=== PATIENT | female | born 1985 | race Caucasian/White ===

== ENCOUNTER → 2017-10-10 16:01 | Outpatient (REF) | payer BC, SELFPAY ==
--- NOTE | 2017-10-10 15:40 | PAPFT_PTH ---
PATIENT: Chantel Best LOC: [facility] U#:[id number] AGE/SX: 39/F ROOM: RE10/10/[address]: Chanel Lane : 1985 BED: DIS: SPEC #: [id number] RECD: 10/10/17 17:54 STATUS: JUN REQ #: [id number] CARA: 10/10/17 15:[address]: Chanel Lane DEPT: [facility] [place] Cytology RECD BY: Meredith Finn ENTERED: 10/10/17 17:55 SP TYPE: PAPFT OTHR DR: Prachi Lewis Tissues: 1 - CX/ENDOCX FOR PAP SMEARS Procedures: PAP THIN PREP/UVM Screening HPV DNA PROBE Comments: [id number]
== END ==
LOC: LBN 16:01
PROVIDERS: PCP Nurse Practitioner; Visit Provider Obstetrics & Gynecology Gynecology
DX: Z12.4 Encounter for screening for malignant neoplasm of cervix (principal); Z11.51 Encounter for screening for human papillomavirus (HPV)
CPT/HCPCS: 88142; 87624

== ENCOUNTER 2017-10-24 15:33 | Outpatient (REF) | payer BC, SELFPAY ==
[2017-10-28 14:57] LABS: Chlamydia Result Negative; GC Result Negative; Specimen Description CERVIX
== END 2017-10-24 15:53 ==
LOC: LBN 15:33
PROVIDERS: PCP Nurse Practitioner; Visit Provider Nurse Practitioner Women's Health
DX: Z11.3 Encounter for screening for infections with a predominantly sexual mode of transmission (principal)
CPT/HCPCS: 87491; 87591

== ENCOUNTER 2018-09-22 14:20 | Outpatient (CLI) | payer BC, SELFPAY ==
[2018-09-22 15:26] LABS: HCG Quant, Pregnancy 767 mIU/mL (1-3)
== END 2018-09-22 14:40 ==
PROVIDERS: PCP Nurse Practitioner; Visit Provider Nurse Practitioner Family
DX: N92.6 Irregular menstruation, unspecified (principal)
CPT/HCPCS: 36415; 84702

== ENCOUNTER 2018-09-25 14:55 | Outpatient (CLI) | payer BC, SELFPAY ==
[2018-09-25 15:47] LABS: HCG Quant, Pregnancy 1620 mIU/mL (1-3)
== END 2018-09-25 15:15 ==
PROVIDERS: PCP Nurse Practitioner; Visit Provider Obstetrics & Gynecology
DX: O20.9 Hemorrhage in early pregnancy, unspecified (principal); Z32.01 Encounter for pregnancy test, result positive
CPT/HCPCS: 36415; 86850; 86900; 86901; 90384; 84702

== ENCOUNTER 2018-09-26 14:06 | Emergency (ER) | payer BC, SELFPAY ==
[2018-09-26 14:10] VITALS: BP 115/90; PULSE 76; RESP 16; TEMP 36.7; O2SAT 99
--- NOTE | 2018-09-26 14:24 | ED.GENADUL_ITS ---
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 You will follow-up with OB on day 4 and day 7 for repeat blood work. Follow-up with OB on Saturday morning for reevaluation. Return immediately to the emergency department if you develop any worsening or concerning symptoms of dizziness, fever, worsening pain or vaginal bleeding. Discharge Data Discharge Date/Time-TO BE ENTERED AT DEPARTURE: 09/26/18 17:43 Discharge Physician: Geneva Renae Medical Decision Making 33-year-old female with estimated gestational age of 3 weeks presents with brown vaginal spotting and right-sided abdominal pain for the past 2 days. She is hemodynamically stable. She appears nontoxic. Her abdomen is soft and minimally tender in the right mid and right lower quadrant. She has no rebound tenderness. Patient had RhoGam injection yesterday. She is quite early in , but will obtain an ultrasound to rule out possible ectopic. We will also check screening labs. Labs reviewed and unremarkable. hCG is downtrending, was 1620, now 1338. Ultrasound notes fluid in endometrial cavity but no true sac as well as fluid collection in right Fallopian tube, differential diagnosis includes early IUP versus miscarriage versus possible ectopic. Appendix was visualized and normal. Case discussed with OB Dr. Suarez who evaluated patient at bedside and patient opts for methotrexate injection at this time. Plan is for patient to follow-up on day 4 and day 7 for labs. She will follow-up with OB on Saturday in the office. Patient remains hemodynamically stable. Patient advised to return to the ER with any worsening or new concerning symptoms. Medical Records Medical records reviewed: Yes I reviewed the patient's medical records. Imaging Data Radiologic Study: Radiologist's impression: ABDOMINAL ULTRASOUND, LIMITED: Limited ultrasound was performed to evaluate appendix in a patient with abdominal pain. Appendix is presumptively visualized in the right lower quadrant as a blind-ending collapsed viscus. Overall thickness is about 5 mm. No edema or fluid collection within or surrounding the presumptive appendix. CONCLUSION: No evidence of appendicitis. Normal appendix presumptively identified. OB ULTRASOUND: Many abnormalities cannot be diagnosed. A normal exam does not exclude a congenital anomaly. HISTORY: Date of exam: 09/26/18 LMP: 09/05-09/09 EDC by LMP: Previous study: wks Range: to EDC by prior us: Findings: Prior surgery/: BIOMETRY: PELVIC MEASUREMENTS: CRL: mm wks Uterus: 7.4 x 4.3 x 6.4 cm Yolk sac: mm wks Gest sac: mm wks Rt Ovary: 3.3 x 1.2 x 0.9 cm BPD: mm wks HC: mm wks Lt Ovary: 2.3 x 1.5 x 1.4 cm AC: mm wks FL: mm wks Comments: Quantitative hCG = 1338 Composite Age (US): wks EDC by US: Heart Rate: BPM Amniotic Fluid: Oligo Normal Polyhydramnios Movement noted: Yes X No Comments: OB ultrasound was performed utilizing first trimester protocol with transabdominal and transvaginal scanning. A tiny quantity of poorly defined fluid in the endometrial cavity noted. No well-defined decidua. No cardiac activity observed. No pole observed. Small fluid collection noted in right adnexa, probably in fallopian tube measuring about 5 mm in greatest diameter. Ovaries are unremarkable in appearance. CONCLUSION: No convincing evidence of intrauterine gestation. Possible right tubal ectopic . Correlation with serial beta-hCG levels and repeat ultrasound recommended. The findings were discussed with Dr. Renae of the Emergency Department on the date of the examination. Lab Data Lab results reviewed: Yes I reviewed the patient's lab results. Laboratory Tests Range/Units 09/26/18 09/26/18 09/26/18 14:41 14:41 14:41 WBC (4.4-10.8) k/cumm 8.58 RBC (4.00-5.20) m/cumm 4.27 Hgb (12.0-15.5) g/dL 13.4 Hct (36.0-46.0) % 38.8 MCV (80-95) fL 90.9 MCH (27.0-33.0) pg 31.4 MCHC (32.0-36.0) g/dL 34.5 RDW (11.7-14.6) % 12.2 Plt Count (130-400) x1000/uL 241 MPV (8.0-11.0) fL 11.4 H Immature Gran % 1.0 Neutrophils % 59.3 Lymphocytes % 24.2 Monocytes % 6.6 Eosinophils % 8.3 Basophils % 0.6 Absolute Neutrophils (1.2-6.7) k/cumm 5.08 Absolute Lymphocytes (1.2-3.4) k/cumm 2.08 Absolute Monocytes (0.11-0.7) k/cumm 0.57 Absolute Eosinophils (0.0-0.7) k/cumm 0.71 H Absolute Basophils (0.0-0.2) k/cumm 0.05 Sodium (136-145) mmol/L 138 Potassium (3.5-5.1) mmol/L 4.0 Chloride (98-107) mmol/L 102 Carbon Dioxide (21.0-32.0) mmol/L 24.0 Anion Gap (3-11) mmol/L 12.0 H BUN (7-18) mg/dL 9 Creatinine (0.55-1.02) mg/dL 0.75 Estimated GFR/1.73 m2 (mL/min/1.73m2) >= 60.00 Glucose (70-100) mg/dL 99 Calcium (8.5-10.1) mg/dL 8.8 Total Bilirubin (0.2-1.0) mg/dL 0.2 AST (15-37) U/L 20 ALT (12-78) U/L 25 Alkaline Phosphatase (46-116) U/L 79 Total Protein (6.4-8.2) g/dL 7.5 Albumin (3.4-5.0) g/dL 3.9 Beta HCG, Quant (1-3) mIU/mL 1338 H Patient ABO/Rh Cancelled HPI General Mode of arrival: ambulatory . Date/Time Provider Initiated Documentation: 09/26/18 14:07 . Limitations to Documentation: no limitations . Information obtained by: patient . HPI Narrative: Patient is a 33-year-old female with LMP of 09/05/2018 with estimated gestational age of 3 weeks who presents with right sided abdominal pain and brown vaginal spotting for the past 2 days. Patient was seen at OB office yesterday and has an uptrending hCG and was referred for repeat EGD and ultrasound on Saturday. Patient states she is returning due to concern for symptoms. She denies any fever, nausea, vomiting. 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 SOREN: 3 Review of Systems Review of Systems All systems reviewed & are unremarkable except as noted in HPI and below Constitutional Reports as per HPI, Denies chills and Denies fever(s) Eyes Denies blurry vision ENT Denies dizziness, Denies sore throat and Denies throat swelling Cardiovascular Denies chest pain and Denies dyspnea Respiratory Denies cough and Denies dyspnea Gastrointestinal Reports abdominal pain, Denies diarrhea and Denies vomiting Genitourinary Denies hematuria and Denies dysuria Musculoskeletal Denies back pain and Denies numbness Integumentary/Breasts Denies lesions and Denies rash Neurologic Denies dizziness, Denies focal weakness and Denies numbness Allergic/Immunologic Denies throat swelling [facility] Medical History Fibrocystic disease of breast (Inactive 10/01/11) Left leg pain (Inactive 05/21/17) [place] teeth extracted (Acute) Family History Mother Diabetes Grandmother Breast cancer Social History Smoking/Tobacco Use Status: Current every day Tobacco Type: cigarettes Alcohol Intake: never Substance use type: marijuana Details: pt states that she has not smoked marijuana in over a year. Number of Children: 2 current occupation: [email or web address] What type of physical activity do you participate in: none Seatbelt use: always Do you feel safe at home: Yes Do you feel safe in your relationship?: Yes Female Reproductive History Menstrual control method: progestin IUCD (LOT=[id number] EXP=03/2020) History History 4 Para Hx # Term Pregnancies 2 Multiple births Hx # Pregnancies Ectopic pregnancies AB induced Hx Number of Living Children AB spontaneous Exam Const General: cooperative, healthy appearing and no acute distress HENMT Head: normal to inspection Face and sinus: normal facial exam Eyes General: appearance normal, both eyes and all related structures Pupils: PERRL EOM: EOM intact bilaterally Neck Neck: normal visual inspection and No submandibular swelling Lymphatic: no lymphadenopathy noted Chest Chest: normal inspection of the chest and no tenderness Resp Effort & Inspection: normal respiratory effort and able to speak in complete sentences Auscultation: clear to auscultation bilaterally Cardio Rate: regular rate Rhythm: regular rhythm GI Inspection: normal to inspection Palpation: soft, not firm, not rigid and tender (minimal R mid and RLQ) Auscultation: normal bowel sounds Skin General skin exam: no rashes or lesions noted Neuro General: alert, awake and oriented x3 Cognition: normal cognition Speech: speech normal Motor: muscle tone normal throughout Sensory Exam: no sensory deficits noted Extrem General: normal to inspection, full ROM, normal capillary refill, no calf tenderness bilaterally and no edema Psych Appearance: grossly normal Mental Status: mental status grossly normal Speech and Movement: speech and movement normal Affect: normal affect Course Vital Signs Temperature 98.1 F 09/26/18 14:10 Pulse 76 09/26/18 14:10 Respiratory Rate 16 09/26/18 14:10 Blood Pressure 115/90 09/26/18 14:10 Pulse Oximetry 99 09/26/18 14:10 Temperature 98.1 F 09/26/18 14:10 Temperature Source Skin 09/26/18 14:10 Pulse 76 09/26/18 14:10 Respiratory Rate 16 09/26/18 14:10 Respiratory Effort Non-Labored 09/26/18 14:21 Blood Pressure 115/90 09/26/18 14:10 Blood Pressure Position Supine 09/26/18 14:10 Pulse Oximetry 99 09/26/18 14:10 Oxygen Delivery Method Room Air 09/26/18 14:10 Oxygen Flow Rate 0 09/26/18 14:10
--- NOTE | 2018-09-26 14:38 | DI.US_ITS ---
SYMPTOMS/DIAGNOSIS: RIGHT LOWER QUADRANT ABDOMINAL PAIN, ? APPENDICITIS, ASSESS FOR INTRAUTERINE ABDOMINAL ULTRASOUND, LIMITED: Limited ultrasound was performed to evaluate appendix in a patient with abdominal pain. Appendix is presumptively visualized in the right lower quadrant as a blind-ending collapsed viscus. Overall thickness is about 5 mm. No edema or fluid collection within or surrounding the presumptive appendix. CONCLUSION: No evidence of appendicitis. Normal appendix presumptively identified. OB ULTRASOUND: Many abnormalities cannot be diagnosed. A normal exam does not exclude a congenital anomaly. HISTORY: Date of exam: 09/26/18 LMP: 09/05-09/09 EDC by LMP: Previous study: wks Range: to EDC by prior us: Findings: Prior surgery/: BIOMETRY: PELVIC MEASUREMENTS: CRL: mm wks Uterus: 7.4 x 4.3 x 6.4 cm Yolk sac: mm wks Gest sac: mm wks Rt Ovary: 3.3 x 1.2 x 0.9 cm BPD: mm wks HC: mm wks Lt Ovary: 2.3 x 1.5 x 1.4 cm AC: mm wks FL: mm wks Comments: Quantitative hCG = 1338 Composite Age (US): wks EDC by US: Heart Rate: BPM Amniotic Fluid: Oligo Normal Polyhydramnios Movement noted: Yes X No Comments: OB ultrasound was performed utilizing first trimester protocol with transabdominal and transvaginal scanning. A tiny quantity of poorly defined fluid in the endometrial cavity noted. No well-defined decidua. No cardiac activity observed. No pole observed. Small fluid collection noted in right adnexa, probably in fallopian tube measuring about 5 mm in greatest diameter. Ovaries are unremarkable in appearance. CONCLUSION: No convincing evidence of intrauterine gestation. Possible right tubal ectopic . Correlation with serial beta-hCG levels and repeat ultrasound recommended. The findings were discussed with Dr. Renae of the Emergency Department on the date of the examination.
[2018-09-26 14:54] LABS: Abs Immature Grans 0.09 k/cumm (0.0-0.09); Absolute Basophil Count 0.05 k/cumm (0.0-0.2); Absolute Eosinophil Count 0.71 k/cumm (0.0-0.7); Absolute Lymphocyte Count 2.08 k/cumm (1.2-3.4); Absolute Monocyte Count 0.57 k/cumm (0.11-0.7); Absolute Neutrophil Count 5.08 k/cumm (1.2-6.7); Basophils % 0.6; Eosinophils % 8.3; HCT 38.8 % (36.0-46.0); HGB 13.4 g/dL (12.0-15.5); Lymphocytes % 24.2; Mean Corp. HGB Concentration 34.5 g/dL (32.0-36.0); Mean Corpuscular Hemoglobin 31.4 pg (27.0-33.0); Mean Corpuscular Volume 90.9 fL (80-95); Mean Platelet Volume 11.4 fL (8.0-11.0); Monocytes % 6.6; Neutrophils % 59.3; Platelet Count 241 x1000/uL (130-400); RBC 4.27 m/cumm (4.00-5.20); RBC Distribution Width 12.2 % (11.7-14.6); White Blood Cell Count 8.58 k/cumm (4.4-10.8)
--- NOTE | 2018-09-26 15:15 | NUR.NOTE ---
Nursing Note: pt in ultrasound, will administer tylenol on return
[2018-09-26 15:31] LABS: ALT 25 U/L (12-78); AST 20 U/L (15-37); Albumin 3.9 g/dL (3.4-5.0); Alkaline Phosphatase 79 U/L (46-116); BUN 9 mg/dL (7-18); Bilirubin, Total 0.2 mg/dL (0.2-1.0); CREATININE 0.75 mg/dL (0.55-1.02); Calcium 8.8 mg/dL (8.5-10.1); Chloride 102 mmol/L (98-107); Glucose 99 mg/dL (70-100); Sodium 138 mmol/L (136-145); Total Protein 7.5 g/dL (6.4-8.2)
[2018-09-26 15:33] LABS: HCG Quant, Pregnancy 1338 mIU/mL (1-3)
[2018-09-26] MEDS: Acetaminophen 325 MG TAB 650 MG PO (16:24)
[2018-09-26 17:39] VITALS: BP 104/65; PULSE 78; RESP 16; TEMP 36.7; O2SAT 98
== END 2018-09-26 17:43 | disposition home or self-care (01) ==
PROVIDERS: Emergency Provider Physician Assistant; PCP Nurse Practitioner
DX: O20.0 Threatened abortion (principal); Z3A.01 Less than 8 weeks gestation of pregnancy; R10.31 Right lower quadrant pain; O26.891 Other specified pregnancy related conditions, first trimester; O99.331 Smoking (tobacco) complicating pregnancy, first trimester
CPT/HCPCS: 36415; 80053; 86900; 86901; 96372; 99284; 76705; 76801; 84702; 85025; J9250

== ENCOUNTER 2018-09-29 14:51 | Outpatient (CLI) | payer BC, SELFPAY ==
[2018-09-29 16:28] LABS: HCG Quant, Pregnancy 620 mIU/mL (1-3)
== END 2018-09-29 15:11 ==
PROVIDERS: PCP Nurse Practitioner; Visit Provider Obstetrics & Gynecology
DX: O00.90 Unspecified ectopic pregnancy without intrauterine pregnancy (principal)
CPT/HCPCS: 36415; 84702

== ENCOUNTER 2018-10-02 09:47 | Outpatient (CLI) | payer BC, SELFPAY ==
[2018-10-02 10:55] LABS: HCG Quant, Pregnancy 775 mIU/mL (1-3)
== END 2018-10-02 10:07 ==
PROVIDERS: Obstetrics & Gynecology; PCP Nurse Practitioner; Visit Provider Obstetrics & Gynecology
DX: O00.90 Unspecified ectopic pregnancy without intrauterine pregnancy (principal)
CPT/HCPCS: 36415; 84702

== ENCOUNTER 2018-10-08 08:38 | Outpatient (CLI) | payer BC, SELFPAY ==
[2018-10-08 10:14] LABS: HCG Quant, Pregnancy 378 mIU/mL (1-3)
== END 2018-10-08 08:58 ==
PROVIDERS: PCP Nurse Practitioner; Visit Provider Obstetrics & Gynecology
DX: Z34.90 Encounter for supervision of normal pregnancy, unspecified, unspecified trimester (principal)
CPT/HCPCS: 36415; 84702

== ENCOUNTER 2018-10-13 15:17 | Outpatient (CLI) | payer BC, SELFPAY ==
[2018-10-13 16:01] LABS: HCG Quant, Pregnancy 359 mIU/mL (1-3)
== END 2018-10-13 15:37 ==
PROVIDERS: PCP Nurse Practitioner; Visit Provider Obstetrics & Gynecology
DX: O00.90 Unspecified ectopic pregnancy without intrauterine pregnancy (principal)
CPT/HCPCS: 36415; 84702

== ENCOUNTER 2018-10-15 18:02 | Observation (INO) | payer BC, SELFPAY ==
[2018-10-15] VITALS (9 sets, daily range): BP systolic 97–119; BP diastolic 48–71; PULSE 54–86; RESP 11–16; TEMP 36–37; O2SAT 97–100
--- NOTE | 2018-10-15 18:19 | ED.GENADUL_ITS ---
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 Patient was seen here on 09/25/2018 at which time she was diagnosed with suspected ectopic . She was treated by WIRE STITCHER OPERATOR with methotrexate. Since that time, she continues to have intermittent discomfort and bleeding. She has been having her quantitative hCG tract and has had slow improvement of this. She denies any fevers or chills. States that this afternoon, the pain was greatly exacerbated. Is having difficulty standing upright position secondary to the pain. Denies any fevers or chills. No change in her appetite. No change in bowel habits. Patient On exam, patient appears nontoxic. Vital signs are within normal limits. Patient is having tenderness in the right lower quadrant, inferior medial to McBurney's point. No peritoneal findings, no guarding or rebound tenderness. Exam is otherwise benign. I am concerned for complication associated with her recent ectopic including rupture, abscess versus other etiology. Plan for imaging and laboratory evaluation. Consulted with Dr. Lea regarding imaging modality, who advised patient go for ultrasound. He will come here to watch the ultrasound being performed and help to determine disposition. He did advise that there is slow. Decrease in quantitative hCG is not unusual. Reports her with her continued pain, he is continuing to be concerned for possible ruptured ectopic or abscess formation. Labs significant for no white count, patient is not anemic. Electrolytes within normal limits. Her quantitative hCG is actually come up slightly to 366 from 359 over the past 2 days. Had a moderate amount of blood in the urine, this may be associated with her recent vaginal bleeding. Dr. Lea was able to watch the ultrasound and advised the patient does have a large fluid collection feels that patient should be brought to the operating room laparotomy for definitive treatment. Discussed this plan with the patient is in agreement with this plan. While the patient was kept comfortable here with minimal pain medications. HPI General Mode of arrival: ambulatory . Date/Time Provider Initiated Documentation: 10/15/18 18:18 . Limitations to Documentation: no limitations . Information obtained by: patient, family (significant other) and RN notes reviewed . History of Present Illness 33 year old F presents to the emergency department with the chief complaint of RLQ pain, described as severe and similar to prior episodes, Quality is described as stabbing, and is localized to the abdomen. Patient reports no radiation. Patient started experiencing this week(s) and it has been intermittent (started again today). No relieving factors improve symptom(s), No exacerbating factors reported . Patient notes denies chest pain, cough, diaphoresis, fever/chills, loss of appetite, nausea/vomiting, rash, shortness of breath and weakness. Patient did receive the following treatments prior to arrival, none Related Data Home Medications Medication Instructions Recorded Confirmed Unknown [No Known Home Meds] 10/15/18 10/15/18 Allergies Allergy/AdvReac Type Severity Reaction Status Date / Time No Known Drug Allergies Allergy Unverified 10/15/18 18:09 General Stated Complaint: Abd Prob SOREN: 3 Review of Systems Constitutional Reports as per HPI, Denies chills, Denies fatigue, Denies fever(s) and Denies headache(s) ENT Denies headache(s) Cardiovascular Reports as per HPI, Denies chest pain and Denies dyspnea Respiratory Reports as per HPI, Denies cough and Denies dyspnea Gastrointestinal Reports as per HPI, Reports abdominal pain, Denies melena, Denies change in bowel habits, Denies nausea and Denies vomiting Genitourinary Reports abnormal vaginal bleeding (has been having intermittent bleeding since miscarriage, no bleeding today), Denies hematuria, Denies difficulty voiding, Denies genital lesions and Denies vaginal discharge Musculoskeletal Reports as per HPI and Denies back pain Integumentary/Breasts Reports as per HPI and Denies rash Neurologic Reports as per HPI and Denies headache(s) Endocrine Denies fatigue [facility] Medical History Fibrocystic disease of breast (Inactive 10/01/11) Left leg pain (Inactive 05/21/17) dysthesia over L lateral thigh developed in second trimester of current . Will refer to physical therapy for evaluation and treatment. [place] teeth extracted (Acute) Social History Smoking/Tobacco Use Status: Current every day Tobacco Type: cigarettes Alcohol Intake: current Alcohol Intake frequency: holidays/special occasions only Drug use: Current Sobriety Substance use type: marijuana Details: pt states that she has not smoked marijuana in over a year. Number of Children: 2 current occupation: [email or web address] What type of physical activity do you participate in: none Seatbelt use: always Do you feel safe at home: Yes Do you feel safe in your relationship?: Yes Female Reproductive History Menstrual control method: progestin IUCD (LOT=[id number] EXP=03/2020) History History 5 Para Hx # Term Pregnancies 2 Multiple births Hx # Pregnancies Ectopic pregnancies AB induced Hx Number of Living Children 2 AB spontaneous 3 Past Pregnancies Del. Date GA/Weeks # Outcome [facility] Date: 09/26/18 On 10/08/18 @ 13:15 Ab DE LA CRUZ,Sandy SAB Exam Const General: cooperative, healthy appearing, comfortable, no acute distress and well developed Nutritional Appearance: average body habitus and well nourished Orientation: alert and awake HENMT Head: normal to inspection Mouth: moist mucous membranes Resp Effort & Inspection: normal respiratory effort, able to speak in complete se ntences and no respiratory distress Auscultation: clear to auscultation bilaterally, no rales, no rhonchi and no wheezes Cardio Rate: regular rate Rhythm: regular rhythm Heart Sounds: S1 normal and S2 normal GI Inspection: normal to inspection, no edema and non-distended Palpation: soft, no hepatosplenomegaly, no aortic enlargement, not firm, no guarding, not rigid and tender in the RLQ; not at McBurney's point (interior medial to this), obturator sign negative, psoas sign negative and with no rebound tenderness Percussion: normal to percussion Auscultation: normal bowel sounds Back/Spine/Pelvis Back: no CVA tenderness Skin General skin exam: no rashes or lesions noted Trauma: no lacerations or abrasions Neuro General: alert and awake Cognition: normal cognition Speech: speech normal Gait: normal gait Psych Appearance: grossly normal and well kempt Mental Status: mental status grossly normal Speech and Movement: speech and movement normal Course Vital Signs Temperature 36.6 C 10/15/18 18:04 Pulse 86 10/15/18 18:04 Respiratory Rate 16 10/15/18 18:04 Blood Pressure 119/71 10/15/18 18:04 Pulse Oximetry 99 10/15/18 18:04 Temperature 36.6 C 10/15/18 18:04 Temperature Source Skin 10/15/18 18:04 Pulse 86 10/15/18 18:04 Respiratory Rate 16 10/15/18 18:04 Respiratory Effort Non-Labored 10/15/18 18:08 Blood Pressure 119/71 10/15/18 18:04 Blood Pressure Position Sitting 10/15/18 18:04 Pulse Oximetry 99 10/15/18 18:04 Pain Level 7 10/15/18 18:04
[2018-10-15 18:23] LABS: Bilirubin Negative (Negative); Blood Moderate (Negative); Clarity Clear (Clear); Glucose Negative (Negative); Ketones Negative (Negative); Leukocyte Esterase Negative (Negative); Nitrite Negative (Negative); Urobilinogen 0.2 EU/dL (Up TO 0.2)
[2018-10-15 18:30] LABS: Epithelial Cells Rare HPF (Negative); Other Cells Negative (Negative); WBC Negative HPF (0-5)
[2018-10-15 18:31] LABS: Bacteria Few HPF (Negative); C & S Indicated? No; Casts Negative LPF (Negative); Crystals Negative HPF (Negative); Mucus Negative (Negative)
[2018-10-15 18:49] LABS: Abs Immature Grans 0.03 k/cumm (0.0-0.09); Absolute Basophil Count 0.05 k/cumm (0.0-0.2); Absolute Eosinophil Count 0.43 k/cumm (0.0-0.7); Absolute Lymphocyte Count 1.54 k/cumm (1.2-3.4); Absolute Monocyte Count 0.66 k/cumm (0.11-0.7); Basophils % 0.5; HCT 35.6 % (36.0-46.0); HGB 12.2 g/dL (12.0-15.5); Immature Grans % 0.3; Lymphocytes % 14.4; Mean Corp. HGB Concentration 34.3 g/dL (32.0-36.0); Mean Corpuscular Hemoglobin 31.7 pg (27.0-33.0); Mean Corpuscular Volume 92.5 fL (80-95); Mean Platelet Volume 10.4 fL (8.0-11.0); Monocytes % 6.2; Neutrophils % 74.6; Platelet Count 329 x1000/uL (130-400); RBC 3.85 m/cumm (4.00-5.20); RBC Distribution Width 12.5 % (11.7-14.6); White Blood Cell Count 10.71 k/cumm (4.4-10.8)
[2018-10-15] MEDS: Normal Saline 1,000 ML 1000 ML IV (18:52)
--- NOTE | 2018-10-15 18:55 | DI.US_ITS ---
SYMPTOM/DIAGNOSIS: RLQ PAIN PELVIC ULTRASOUND: Transabdominal and transvaginal examination was performed. Comparison 09/26/18 The uterus measures 8.1 cm long x 4.6 cm AP x 5.1 cm transverse. The endometrial stripe is within normal limits at 0.5 cm. No evidence of an intrauterine gestational sac is present. The left ovary measures 3.3 x 2.1 x 2.6 cm. There is normal blood flow. No evidence of torsion. There is a 2.3 x 1.5 x 2 cm simple cyst on the left ovary. The right ovary measures 4.1 x 3.3 x 3.5 cm. There is normal blood flow to the right ovary. There is a 3 x 3.9 x 3.2 cm complex right ovarian cyst. In the right adnexa interposed between the ovary and the uterus there is a 3 x 2.8 x 2.5 cm soft tissue mass suspicious for ectopic . There is free fluid seen in the cul de sac which is moderate in degree. IMPRESSION: 3 x 2.8 x 2.5 cm soft tissue mass in the right adnexa suspicious for an ectopic . 2. 3.9 cm complex right ovarian cyst.
[2018-10-15 19:10] LABS: ALT 19 U/L (14-59); AST 14 U/L (15-37); Alkaline Phosphatase 91 U/L (46-116); Anion Gap 10.3 mmol/L (3-11); BUN 10 mg/dL (7-18); Bilirubin, Total 0.3 mg/dL (0.2-1.0); CO2 26.7 mmol/L (21.0-32.0); CREATININE 0.74 mg/dL (0.55-1.02); Calcium 8.6 mg/dL (8.5-10.1); Chloride 102 mmol/L (98-107); Glucose 99 mg/dL (70-100); HCG Quant, Pregnancy 366 mIU/mL (1-3); Potassium 3.8 mmol/L (3.5-5.1); Sodium 139 mmol/L (136-145); Total Protein 7.7 g/dL (6.4-8.2)
--- NOTE | 2018-10-15 19:57 | W.PM.HP.N ---
Date of service: 10/15/18 Time of Service: 19:57 Assessment and Plan (1) Ectopic : Current visit: Yes Status: Acute I reviewed ultrasound findings with the patient. Findings are highly suspicious for ectopic and HCGs have leveled off and not continued to decline appropriately. She is not a candidate for a second cycle of methotrexate. My recommendation is to proceed with laparoscopy and possible right salpingectomy for ectopic. She is also consented for suction D&C. Risks of surgery were reviewed with the patient. All questions were answered to the patient's satisfaction and consent was obtained. History of Present Illness Chief Complaint: RLQ abdominal pain Narrative: 33 year old presents to the ER with acute onset of severe RLQ pain. She has been followed for a suspected ectopic and recieved methotrexate on 09/26. HCGs were followed and declined appropriately at first. Her last two HCGs did plateau between today and a prior draw two days prior and in fact did increase slightly. She rates her pain 9 out of 10 on pain scale and was somewhat relieved by narcotics while in the ER. A pelvic ultrasound was performed showing a moderate amount of pelvic free fluid increased from her previous study. A large complex cyst was noted in the right adnexa and a right adnexal mass suspicious for ectopic was noted. Review of Systems Review of Systems All systems reviewed & are unremarkable except as noted in HPI and below PFSH Social History Smoking/Tobacco Use Status: Current every day Tobacco Type: cigarettes Alcohol Intake: current Alcohol Intake frequency: holidays/special occasions only Drug use: Current Sobriety Substance use type: marijuana Details: pt states that she has not smoked marijuana in over a year. Number of Children: 2 current occupation: [employer] What type of physical activity do you participate in: none Seatbelt use: always Do you feel safe at home: Yes Do you feel safe in your relationship?: Yes Female Reproductive History Menstrual control method: progestin IUCD (LOT=[id number] EXP=03/2020) History History 5 Para Hx # Term Pregnancies 2 Multiple births Hx # Pregnancies Ectopic pregnancies AB induced Hx Number of Living Children 2 AB spontaneous 3 Past Pregnancies Del. Date GA/Weeks # Outcome Route Wgt Sex Labor Lgth Anesthesia Location Prov Complic 09/26/18 Unsuccessful Delivery Date: 09/26/18 On 10/08/18 @ 13:15 Berger JONOSandy SAB Meds Home Medications Medication Instructions Recorded Confirmed Type Unknown [No Known Home Meds] 10/15/18 10/15/18 History Allergies Allergy/AdvReac Type Severity Reaction Status Date / Time No Known Drug Allergies Allergy Unverified 10/15/18 18:09 Exam Resp Auscultation: clear to auscultation bilaterally Cardio Rate: regular rate Rhythm: regular rhythm Results Labs : 10/15/18 18:43 10/15/18 18:43 Laboratory Results - last 24 hr 10/15/18 10/15/18 10/15/18 18:18 18:43 18:43 WBC 10.71 RBC 3.85 L Hgb 12.2 Hct 35.6 L MCV 92.5 MCH 31.7 MCHC 34.3 RDW 12.5 Plt Count 329 MPV 10.4 Immature Gran % 0.3 Neutrophils % 74.6 Lymphocytes % 14.4 Monocytes % 6.2 Eosinophils % 4.0 Basophils % 0.5 Absolute Neutrophils 8.00 H Absolute Lymphocytes 1.54 Absolute Monocytes 0.66 Absolute Eosinophils 0.43 Absolute Basophils 0.05 Sodium 139 Potassium 3.8 Chloride 102 Carbon Dioxide 26.7 Anion Gap 10.3 BUN 10 Creatinine 0.74 Estimated GFR/1.73 m2 >= 60.00 Glucose 99 Calcium 8.6 Total Bilirubin 0.3 AST 14 L ALT 19 Alkaline Phosphatase 91 Total Protein 7.7 Albumin 4.0 Beta HCG, Quant 366 H Urine Color Yellow Urine Clarity Clear Urine pH 6.0 Ur Specific [place] 1.020 Urine Protein Negative Urine Ketones Negative Urine Blood Moderate H Urine Nitrite Negative Urine Bilirubin Negative Urine Urobilinogen 0.2 Ur Leukocyte Esterase Negative Urine RBC 3-5 H Urine WBC Negative Ur Epithelial Cells Rare Urine Crystals Negative Urine Bacteria Few Urine Casts Negative Urine Mucus Negative Urine Other Negative Ur Culture Indicated? No Urine Glucose Negative Last Vital Signs Temp 97.9 F 10/15/18 18:04 Pulse 86 10/15/18 18:04 Resp 16 10/15/18 18:04 BP 119/71 10/15/18 18:04 Pulse Ox 99 10/15/18 18:04
--- NOTE | 2018-10-15 20:45 | DI.VRAD_ITS ---
Addendum created by Jl Lucero MD on 10/15/2018 8:45:[address] Limon is aware of the report and the critical finding. Initial report created on 10/15/2018 8:44:37 PM EDT EXAM: US Pelvis Complete, Transabdominal and US Pelvis, Transvaginal EXAM DATE/TIME: 10/15/2018 8:08 PM CLINICAL HISTORY: 33 years old, female; Pelvic pain TECHNIQUE: Imaging protocol: Real-time transabdominal and transvaginal pelvic ultrasound (complete) with image documentation. Transvaginal imaging was used for better evaluation of the endometrium and adnexa. COMPARISON: US PELVIS TRANSVAG 12/10/2011 3:12 PM FINDINGS: Uterus/cervix: Transabdominally the uterus measures 8.3 x 4.6 x 1.9 cm. The endometrium measures approximately 7 mm. Transvaginally the uterus measures 8.1 x 4.6 x 5.1 cm. There is a nabothian cyst. The endometrium measures approximately 5 mm. Right adnexa: Transabdominally, there is a right ovarian cyst measuring approximately 3.9 cm. Transabdominally, there was normal vascular flow to the right ovary. Transvaginally, the right ovary measures 4.1 x 3.3 x 2.2 cm. There is a complex right ovarian cyst measuring 3.9 x 3.0 x 3.2 cm. There is normal vascular flow to the right ovary. There is a mass adjacent to the right ovary measuring 3.0 x 2.8 x 2.5 cm. This could represent an ectopic . Clinical correlation is recommended. Left adnexa: Transabdominally, there is a left ovarian cyst measuring approximately 2.3 cm. Transabdominally, there was normal vascular flow to left ovary. Transvaginally, the sixth left ovary measured 3.3 x 2.1 x 2.6 cm. There is a left ovarian cyst measuring 2.3 x 1.5 x 2.0 cm. Free fluid: There is free fluid within the cul-de-sac. Bladder: The urinary bladder is within normal limits. IMPRESSION: Suspect right ectopic as above. Complex right ovarian cyst. This could be followed up with a repeat ultrasound examination in one months time to assess for stability or resolution. Dictated and Authenticated by: Jl Lucero MD. Ordering:SISSY Chatman MD
[2018-10-15] MEDS: Lactated Ringers 1,000 ML 200 ML IV ×2 (20:54→22:01)
[2018-10-15] MEDS: Bupivacaine 0.25% Pres-Free 30 ML VIAL (21:40)
--- NOTE | 2018-10-15 22:22 | FALL_PTH ---
PATIENT: Chantel Best LOC: OBS U#:[id number] AGE/SX: 33/F ROOM: OBS.306 RE10/15/[address]: Michael Lea MD : [id number] BED: A DIS: 10/16/2018 SPEC #: [id number] RECD: 10/16/18 12:09 STATUS: JUN REMarquis #: [id number] CARA: 10/15/18 22:[address]: Michael Lea DEPT: Surgical Specimen RECD BY: Meredith Finn ENTERED: 10/16/18 12:11 SP TYPE: Fall OTHR DR: Prachi Lewis Tissues: 1 - FALLOPIAN TUBE (ECTOPIC) Procedures: GROSS AND MICRO LEVEL 4 Comments: [id number]
--- NOTE | 2018-10-15 22:39 | W.PM.OP ---
Date of service: 10/15/18 Time of Service: 22:40 Operative Note DATE OF PROCEDURE: 10/15/18 PRE-OP DIAGNOSIS: Right ectopic POST-OP DIAGNOSIS: same PROCEDURE: Laparoscopic right salpingectomy SURGEON: Michael Lea ASSISTING SURGEON: Fareed Grimes ANESTHESIA: GETA ESTIMATED BLOOD LOSS: 50 PATHOLOGY: other (Right fallopian tube with ectopic) COMPLICATIONS: None Patient was transported to: PACU Patient's condition: stable Findings: 1. Large right sided ectopic in distal fallopian tube adherent to posterior broad ligament, right ovary, pelvic sidewall and appendix. Procedure Description: The patient was taken to the operating room and after an adequate level of general anesthesia was achieved the patient was placed in lithotomy position. Patient was prepped and draped in the usual sterile manner. A Gannon catheter was placed in the bladder draining clear urine. A Petrosand Energylka uterine manipulator was also placed to the cervix. The patient was repositioned. The surgeon was regloved. Attention was then turned to the patient's abdomen. The skin and subcutaneous tissues at the umbilicus were infiltrated with 0.25% Marcaine solution. A small infraumbilical skin incision was then made with a #15 blade scalpel. Sharp dissection was carried down to the underlying layer fascia. The fascia was grasped and elevated with 2 Richie clamps and incised sharply with a 15 blade scalpel. 2 sutures of 0 Vicryl were placed on either side of the fascial incision. The peritoneum was entered sharply with hemostats. S retractors were placed. A 10 mm balloon port trocar was advanced through the incision and secured in place. A pneumoperitoneum to approximately 15 mmHg was established. Two 5 mm ports were placed in the right lower and left lower quadrants under direct visualization. A moderate hemoperitoneum was noted. The right fallopian tube was identified. A large ectopic located along the distal tube which was ruptured. The ectopic was partially extruded and adherent to the posterior broad ligament, ovarian fossa, right ovary which had a large cyst that ruptured on manipulation, and appendix. Due to the complexity of the ectopic a third 5 mm port was placed in the left upper quadrant. Blunt dissection was used to mobilize the fallopian tube and ectopic . Hydrodissection was also used. Fallopian tube with ectopic were able to be isolated and freed from the right ovary. Dissection was carried across the right mesosalpinx with the LigaSure device and carried to the proximal fallopian tube. The proximal tube was transected. Excellent hemostasis was noted. A thorough irrigation was performed and blood and clots were removed from the abdomen. The right ovary did have the cyst rupture as mentioned previously and there was a bleeding edge along the capsule of the cyst which was cauterized with the LigaSure device. 10 mL's of FloSeal were placed within the cavity of the ovarian cyst. Excellent hemostasis was noted. The right fallopian tube with ectopic were retrieved from the abdomen using an Endo Catch bag. The ectopic was removed through the umbilical port. All sites of adherence including appendix and ovary were well visualized and were noted to be free of ectopic tissue. All trochars were removed under direct visualization. The fascia at the umbilicus was closed with a [id number] suture of 0 Vicryl. Each incision was closed with interrupted sutures of 4 Monocryl and Dermabond was applied. The procedure was concluded at this point. Sponge, lap and needle counts were correct at the conclusion of the procedure. The patient was transferred to PACU in stable condition.
[2018-10-15] MEDS: Lactated Ringers 1,000 ML 125 ML IV (22:48)
[2018-10-15] MEDS: HYDROmorphone 2 MG/ML VIAL IVP ×2 (23:12→23:18)
[2018-10-16] VITALS (8 sets, daily range): BP systolic 92–143; BP diastolic 59–70; PULSE 52–68; RESP 16; TEMP 36.5–36.6; O2SAT 96–99
--- NOTE | 2018-10-16 01:49 | NUR.NOTE ---
Nursing Note: OOB to BR with assistance. Unable to void but steady on her feet.
--- NOTE | 2018-10-16 01:52 | NUR.NOTE ---
SCDs not in use pt is ambulatingNursing Note:
[2018-10-16] MEDS: Ketorolac 30 MG/ML VIAL IVP ×2 (02:08→07:43)
--- NOTE | 2018-10-16 03:41 | NUR.NOTE ---
OOB to BR, more steady - minimal assist. Unable to void. Ice pack to perineum.Nursing Note:
[2018-10-16] MEDS: Lactated Ringers 1,000 ML 30 ML IV (05:00)
--- NOTE | 2018-10-16 05:23 | NUR.NOTE ---
Patient still unable to void. Straight cath for 700 ml. Pt states that she feels much better now.
[2018-10-16] MEDS: Normal Saline Flush 10 ML SYR IVP (07:42)
--- NOTE | 2018-10-16 11:15 | W.PM.PROGNOT ---
Date of Service Date of service: 10/16/18 Time of Service: 11:15 Assessment and Plan (1) Ectopic : Current visit: Yes Status: Acute S/P laparoscopic right salpingectomy for ruptured ectopic . Ok to discharge home. Follow up with me in one week in the clinic. Subjective Interval history since last seen: Doing well this morning. She did have difficulty voiding early this morning but that is resolved now. Pain is well controlled. She is ambulatory and tolerating regular diet. Exam GI Other: Incisions are well approximated. Objective Objective Clinical Data: Abnormal lab results 10/15/18 10/15/18 10/15/18 Range/Units 18:18 18:43 18:43 RBC 3.85 L (4.00-5.20) m/cumm Hct 35.6 L (36.0-46.0) % Absolute Neutrophils 8.00 H (1.2-6.7) k/cumm AST 14 L (15-37) U/L Beta HCG, Quant 366 H (1-3) mIU/mL Urine Blood Moderate H (Negative) Urine RBC 3-5 H (0-2) Vital Signs Temperature 97.9 F 10/16/18 07:35 Temperature Source Skin 10/16/18 07:35 Pulse 52 L 10/16/18 07:35 Pulse Rhythm Regular 10/16/18 07:35 Respiratory Rate 16 10/16/18 07:35 Respiratory Effort Non-Labored 10/16/18 07:35 Respiratory Depth Normal 10/16/18 07:35 Respiratory Pattern Normal 10/16/18 07:35 Blood Pressure 97/59 L 10/16/18 07:35 Blood Pressure Position Sitting 10/15/18 18:04 Pulse Oximetry 97 10/16/18 07:35 Respiratory End-tidal CO2 26 10/15/18 23:24 Oxygen Delivery Method Room Air 10/16/18 07:35 Oxygen Flow Rate 0 10/16/18 07:35 Pain Level 2 10/16/18 07:43 Intake & Output 10/15/18 10/15/18 10/16/18 11:59 23:59 11:59 Intake Total 3020 / 3020 200 / 200 Output Total 250 / 250 2400 / 2400 Balance 2770 / 2770 -2200 / -2200 Weight 140 lb 0.002 oz Intake: IV 3000 / 3000 Oral 20 / 20 200 / 200 Output: Urine 200 / 200 2400 / 2400 Estimated Blood Loss 50 / 50 Other: Urine Color Yellow Yellow Urine Appearance Clear Clear Urine Odor None Comment patient got up to br but was unable to void at this time Emesis Description None Voiding Methods Toilet Laboratory Results WBC 10.71 k/cumm (4.4-10.8) 10/15/18 18:43 RBC 3.85 m/cumm (4.00-5.20) L 10/15/18 18:43 Hgb 12.2 g/dL (12.0-15.5) 10/15/18 18:43 Hct 35.6 % (36.0-46.0) L 10/15/18 18:43 MCV 92.5 fL (80-95) 10/15/18 18:43 MCH 31.7 pg (27.0-33.0) 10/15/18 18:43 MCHC 34.3 g/dL (32.0-36.0) 10/15/18 18:43 RDW 12.5 % (11.7-14.6) 10/15/18 18:43 Plt Count 329 x1000/uL (130-400) 10/15/18 18:43 MPV 10.4 fL (8.0-11.0) 10/15/18 18:43 Immature Gran % 0.3 10/15/18 18:43 74.6 10/15/18 18:43 14.4 10/15/18 18:43 6.2 10/15/18 18:43 4.0 10/15/18 18:43 0.5 10/15/18 18:43 Absolute Neutrophils 8.00 k/cumm (1.2-6.7) H 10/15/18 18:43 Absolute Lymphocytes 1.54 k/cumm (1.2-3.4) 10/15/18 18:43 Absolute Monocytes 0.66 k/cumm (0.11-0.7) 10/15/18 18:43 Absolute Eosinophils 0.43 k/cumm (0.0-0.7) 10/15/18 18:43 Absolute Basophils 0.05 k/cumm (0.0-0.2) 10/15/18 18:43 Sodium 139 mmol/L (136-145) 10/15/18 18:43 Potassium 3.8 mmol/L (3.5-5.1) 10/15/18 18:43 Chloride 102 mmol/L (98-107) 10/15/18 18:43 Carbon Dioxide 26.7 mmol/L (21.0-32.0) 10/15/18 18:43 10.3 mmol/L (3-11) 10/15/18 18:43 BUN 10 mg/dL (7-18) 10/15/18 18:43 0.74 mg/dL (0.55-1.02) 10/15/18 18:43 >= 60.00 (mL/min/1.73m2) 10/15/18 18:43 Glucose 99 mg/dL (70-100) 10/15/18 18:43 Calcium 8.6 mg/dL (8.5-10.1) 10/15/18 18:43 0.3 mg/dL (0.2-1.0) 10/15/18 18:43 AST 14 U/L (15-37) L 10/15/18 18:43 ALT 19 U/L (14-59) 10/15/18 18:43 91 U/L (46-116) 10/15/18 18:43 7.7 g/dL (6.4-8.2) 10/15/18 18:43 4.0 g/dL (3.4-5.0) 10/15/18 18:43 Beta HCG, Quant 366 mIU/mL (1-3) H 10/15/18 18:43 Yellow (Yellow) 10/15/18 18:18 Clear (Clear) 10/15/18 18:18 6.0 (5-8) 10/15/18 18:18 Ur Specific [place] 1.020 (1.005-1.025) 10/15/18 18:18 Negative mg/dL (Negative) 10/15/18 18:18 Negative mg/dL (Negative) 10/15/18 18:18 Moderate (Negative) H 10/15/18 18:18 Negative (Negative) 10/15/18 18:18 Negative (Negative) 10/15/18 18:18 0.2 EU/dL (Up TO 0.2) 10/15/18 18:18 Ur Leukocyte Esterase Negative (Negative) 10/15/18 18:18 3-5 (0-2) H 10/15/18 18:18 Negative HPF (0-5) 10/15/18 18:18 Ur Epithelial Cells Rare HPF (Negative) 10/15/18 18:18 Negative HPF (Negative) 10/15/18 18:18 Few HPF (Negative) 10/15/18 18:18 Negative LPF (Negative) 10/15/18 18:18 Negative (Negative) 10/15/18 18:18 Negative (Negative) 10/15/18 18:18 Ur Culture Indicated? No 10/15/18 18:18 Negative mg/dL (Negative) 10/15/18 18:18
== END 2018-10-16 11:55 | disposition home or self-care (01) ==
LOC: ER 22:39 → OBS 23:14
PROVIDERS: Admitting Provider Obstetrics & Gynecology; Emergency Provider Physician Assistant; PCP Nurse Practitioner; Visit Provider Obstetrics & Gynecology
PROC: 10T24ZZ Resection of Products of Conception, Ectopic, Percutaneous Endoscopic Approach (ICD-10-PCS; CPT 49320; principal; 2018-10-15 20:20)
PROC: 10T24ZZ Resection of Products of Conception, Ectopic, Percutaneous Endoscopic Approach (ICD-10-PCS; CPT 58661; 2018-10-15 20:20)
DX: O00.101 Right tubal pregnancy without intrauterine pregnancy (principal); K66.1 Hemoperitoneum; N83.201 Unspecified ovarian cyst, right side; F17.210 Nicotine dependence, cigarettes, uncomplicated
CPT/HCPCS: 59151; 80053; 88305; 96360; 96361; 96374; 99223; 99233; 99285; 76830; 76856; 81003; 81015; 84702; 85025; 99284; G0378; J0131; J1100; J1885; J2001; J2250; J2405; J3010

== ENCOUNTER 2018-10-22 15:10 | Outpatient (CLI) | payer BC, SELFPAY ==
[2018-10-22 18:06] LABS: HCG Quant, Pregnancy 3 mIU/mL (1-3)
== END 2018-10-22 15:30 ==
PROVIDERS: Obstetrics & Gynecology; PCP Nurse Practitioner; Visit Provider Obstetrics & Gynecology
DX: O00.90 Unspecified ectopic pregnancy without intrauterine pregnancy (principal)
CPT/HCPCS: 36415; 84702

== ENCOUNTER 2018-12-31 16:30 | Emergency (ER) | payer BC, SELFPAY ==
[2018-12-31 16:38] VITALS: BP 140/69; PULSE 74; RESP 14; TEMP 37.2; O2SAT 98
--- NOTE | 2018-12-31 17:04 | DI.RAD_ITS ---
EXAM: XR KNEE RT 3V AP,LAT,JONELLE INDICATION: R distal thigh pain and swelling. COMPARISON: No exams were available for comparison TECHNIQUE: 2D digital imaging was performed. FINDINGS: No fracture is identified. The joint spaces are well maintained. There is a question of a joint ef fusion. IMPRESSION: Question of joint effusion.
--- NOTE | 2018-12-31 17:05 | ED.GENADUL_ITS ---
Discharge Plan Disposition Patient Disposition: HOME Condition: Stable Discharge Details Chief Complaint: Orthopedic Clinical Impression: Knee pain, right Primary Care Provider: Prachi Lewis ED Provider: Leonidas Riggs Home Meds and New Rx's Prescriptions: Continued norethindrone (contraceptive) 0.35 mg Tablet 0.35 mg PO DAILY RF: 0 Discharge Instructions Instructions: Knee Pain (ED) Additional Instructions: Rest, ice, elevation to reduce pain and swelling. Tylenol if needed for pain. May use Mars bandage as tolerated for stability and compression. Weightbearing as tolerated with use of crutches. Please follow-up in orthopedics. Call the office at [phone] for an appointment time. Return to the emergency department for any acute concerns. Discharge Data Discharge Date/Time-TO BE ENTERED AT DEPARTURE: 12/31/18 19:25 Medical Decision Making 33-year-old female presents from home with right distal thigh pain and swelling over 2 days time. No obvious injury that she noted. She was seen in clinic in subsequent referred to the ER. She arrives with with a temp of 37.2, pulse 74, blood pressure 140/69. She is tender at the distal lateral/anterior thigh but does not appear to have significant joint effusion or overlying erythema. Laboratories obtained which reveal a white blood cell count of 11.5, hematocrit 40, platelets 276. Chemistries reassuring, CRP is 0.96, uric acid 4.1. X-ray with note of right knee joint effusion. No osseous lesion appreciated. Contrast-enhanced CT scan obtained which reveals trace right knee joint fluid. No other acute findings. Patient seen informally by Dr. St. Appropriate for outpatient management. Likely soft tissue injury with inflammatory noninfectious reaction. Will treat with crutches if needed, compression bandage, follow-up in orthopedics. HPI General Mode of arrival: ambulatory . Date/Time Provider Initiated Documentation: 12/31/18 16:44 . Limitations to Documentation: no limitations . Information obtained by: patient . History of Present Illness 33 year old F presents to the emergency department with the chief complaint of Right distal thigh pain and swelling over 2 days, described as mild, Quality is described as dull and constant, and is localized to the right and lower extremity. Edilberto escoto reports no radiation. Patient started experiencing this day(s) and it has been constant. Rest improves symptom(s), Movement worsens symptoms . Patient notes no other symptoms.. Patient did receive the following treatments prior to arrival, none Related Data Home Medications Medication Instructions Recorded Confirmed norethindrone (contraceptive) 0.35 mg PO DAILY 12/31/18 12/31/18 Allergies Allergy/AdvReac Type Severity Reaction Status Date / Time No Known Drug Allergies Allergy Unverified 12/31/18 18:31 General Stated Complaint: Orthopedic SOREN: 3 Review of Systems Narrative: 6 systems reviewed and otherwise negative. No rash, no fever, denies trauma. [facility] Medical History Fibrocystic disease of breast (Inactive 10/01/11) Left leg pain (Inactive 05/21/17) dysthesia over L lateral thigh developed in second trimester of current . Will refer to physical therapy for evaluation and treatment. Family History Mother Diabetes Grandmother Breast cancer Social History Smoking/Tobacco Use Status: Current every day Tobacco Type: cigarettes Alcohol Intake: current Alcohol Intake frequency: holidays/special occasions only Drug use: Current Sobriety Substance use type: marijuana Details: pt states that she has not smoked marijuana in over a year. Number of Children: 2 current occupation: [employer] What type of physical activity do you participate in: none Seatbelt use: always Do you feel safe at home: Yes Do you feel safe in your relationship?: Yes Female Reproductive History Menstrual control method: progestin IUCD (LOT=[id number] EXP=03/2020) History History 5 Para Hx # Term Pregnancies 2 Multiple births Hx # Pregnancies Ectopic pregnancies AB induced Hx Number of Living Children 2 AB spontaneous 3 Past Pregnancies Del. Date GA/Weeks # Outcome Route Wgt Sex Labor Lgth Anesthes ia Location Prov Complic 09/26/18 Unsuccessful Delivery Date: 09/26/18 On 10/08/18 @ 13:15 Sandy Berger LPN SAB Exam Narrative Exam Narrative: GEN: awake, alert, oriented 3. Pleasant, well groomed, interactive. HEAD: Normocephalic, atraumatic ENT: Mucous membranes moist, oropharynx unremarkable, External ear exam unremarkable EYES: PERRL, EOMI NECK: Full ROM, no YORDAN, no menigismus CHEST/RESP: Nontender, clear to auscultation bilateral, no wheeze/rhonchi/rales CARDIOVASCULAR: RRR, no murmur, rub edith. 2+ Rad pulse bilateral ABDOMEN: Soft, nontender, no mass. +Bowel sounds EXT: Right knee range of motion is limited by pain. There is right distal thigh, vastus lateralis pain with palpation and mild swelling. There is no overlying erythema. There is no joint effusion or joint laxity appreciated. Neuro: Grossly normal neurologic exam, conversant, interactive. Psych: Speech fluent, thoughts congruent, affect normal Course Vital Signs Vital signs: Vital Signs Temperature 37.2 C 12/31/18 16:38 Pulse 74 12/31/18 16:38 Respiratory Rate 14 12/31/18 16:38 Blood Pressure 140/69 12/31/18 16:38 Pulse Oximetry 98 12/31/18 16:38 Temperature 37.2 C 12/31/18 16:38 Temperature Source Temporal Artery Scan 12/31/18 16:38 Pulse 74 12/31/18 16:38 Respiratory Rate 14 12/31/18 16:38 Respiratory Effort Non-Labored 12/31/18 16:42 Blood Pressure 140/69 12/31/18 16:38 Blood Pressure Position Sitting 12/31/18 16:38 Pulse Oximetry 98 12/31/18 16:38 Oxygen Delivery Method Room Air 12/31/18 16:38 Oxygen Flow Rate 0 12/31/18 16:38 Pain Level 8 12/31/18 16:38
[2018-12-31] MEDS: Ketorolac 30 MG/ML VIAL IVP (17:20)
[2018-12-31 17:27] LABS: Abs Immature Grans 0.03 k/cumm (0.0-0.09); Absolute Basophil Count 0.05 k/cumm (0.0-0.2); Absolute Eosinophil Count 0.37 k/cumm (0.0-0.7); Absolute Lymphocyte Count 2.56 k/cumm (1.2-3.4); Absolute Monocyte Count 0.54 k/cumm (0.11-0.7); Absolute Neutrophil Count 7.96 k/cumm (1.2-6.7); Basophils % 0.4; Eosinophils % 3.2; HCT 40.3 % (36.0-46.0); HGB 13.5 g/dL (12.0-15.5); Immature Grans % 0.3; Lymphocytes % 22.2; Mean Corp. HGB Concentration 33.5 g/dL (32.0-36.0); Mean Corpuscular Hemoglobin 30.4 pg (27.0-33.0); Mean Corpuscular Volume 90.8 fL (80-95); Mean Platelet Volume 10.6 fL (8.0-11.0); Monocytes % 4.7; Neutrophils % 69.2; Platelet Count 276 x1000/uL (130-400); RBC 4.44 m/cumm (4.00-5.20); RBC Distribution Width 12.2 % (11.7-14.6); White Blood Cell Count 11.51 k/cumm (4.4-10.8)
[2018-12-31 17:40] LABS: ALT 18 U/L (14-59); AST 14 U/L (15-37); Albumin 3.9 g/dL (3.4-5.0); Alkaline Phosphatase 80 U/L (46-116); Anion Gap 9.2 mmol/L (3-11); BUN 8 mg/dL (7-18); Bilirubin, Total 0.2 mg/dL (0.2-1.0); C-Reactive Protein 0.96 mg/dL (0.0-0.3); CO2 25.8 mmol/L (21.0-32.0); CREATININE 0.66 mg/dL (0.55-1.02); Calcium 8.4 mg/dL (8.5-10.1); Chloride 103 mmol/L (98-107); Glucose 89 mg/dL (70-100); Potassium 3.6 mmol/L (3.5-5.1); Sodium 138 mmol/L (136-145); Total Protein 7.7 g/dL (6.4-8.2); Uric Acid 4.1 mg/dL (2.6-6.0)
--- NOTE | 2018-12-31 18:08 | DI.VRAD_ITS ---
PROCEDURE INFORMATION: Exam: XR Right Knee Exam date and time: 12/31/2018 5:44 PM Clinical history: 33 years old, female; Right knee pain TECHNIQUE: Imaging protocol: XR Right knee. Views: 3 views. COMPARISON: No relevant prior studies available. FINDINGS: Bones/joints: No fracture. No dislocation. No focal osseous lesion. No significant degenerative change. Moderate right knee joint effusion. Soft tissues: No soft tissue radiopaque foreign body. IMPRESSION: Moderate right knee joint effusion. Dictated and Authenticated by: Cristian Manley MD. Ordering:MICHAEL Lauren MD
[2018-12-31] MEDS: Omnipaque 350 MG/ML 100 ML BTL IJ (18:18)
--- NOTE | 2018-12-31 18:45 | DI.CT_ITS ---
EXAM: CT LOWER EXTREMITY RT W CLINICAL HISTORY: R lat thigh swelling, pain, inflamm markers elev TECHNIQUE: Noncontrast. COMPARISON: No exams were available for comparison FINDINGS: No fracture or bony erosions are seen. There is no evidence of abscess. There is a trace amount of fl uid in the joint space. IMPRESSION: Trace joint effusion. No evidence of abscess or significant soft tissue edema.
--- NOTE | 2018-12-31 19:01 | DI.VRAD_ITS ---
PROCEDURE INFORMATION: Exam: CT Right Lower Extremity With Contrast; Thigh Exam date and time: 12/31/2018 6:36 PM Clinical history: 33 years old, female; Right thigh pain and swelling. Pain more distal. TECHNIQUE: Imaging protocol: CT of the Right lower extremity with intravenous contrast was performed. Exam focused on the thigh. Radiation optimization: All CT scans at this facility use at least one of these dose optimization techniques: automated exposure control; mA and/or kV adjustment per patient size (includes targeted exams where dose is matched to clinical indication); or iterative reconstruction. Contrast material: OMNIPAQUE 350; Contrast volume: 100 ml; Contrast route: IV; COMPARISON: CR XR KNEE RT 3V AP,LAT,JONELLE 12/31/2018 5:38 PM FINDINGS: Bones/joints: No fracture. No dislocation. No focal osseous lesion. No significant degenerative change. Trace right knee joint fluid on CT. Soft tissues: No soft tissue radiopaque foreign body. No Lund's cyst. IMPRESSION: 1. Trace right knee joint fluid on CT. 2. Otherwise, no acute findings. Dictated and Authenticated by: Cristian Manley MD. Ordering:MICHAEL Lauren MD
== END 2018-12-31 19:25 | disposition home or self-care (01) ==
PROVIDERS: Emergency Provider Emergency Medicine; PCP Nurse Practitioner
DX: M25.561 Pain in right knee (principal); M25.461 Effusion, right knee
CPT/HCPCS: 36415; 73562; 80053; 96374; 99284; 73701; 84550; 85025; 86140; E0114; J1885; J3490

== ENCOUNTER 2019-02-13 09:21 | Emergency (ER) | payer BC, SELFPAY ==
[2019-02-13 09:25] VITALS: BP 135/81; PULSE 101; RESP 18; TEMP 36.9; O2SAT 99
--- NOTE | 2019-02-13 09:45 | ED.GENADUL_ITS ---
Discharge Plan Disposition Patient Disposition: HOME Condition: Good Discharge Details Chief Complaint: GenMedical Clinical Impression: Hx of viral illness Primary Care Provider: Prachi Lewis ED Provider: Maegan Win Home Meds and New Rx's Prescriptions: No Action norethindrone (contraceptive) 0.35 mg Tablet 0.35 mg PO DAILY RF: 0 Discharge Instructions Instructions: Viral Syndrome (ED) Additional Instructions: Drink plenty of fluids. Rest activities as tolerated. Motrin or Tylenol for soreness if needed. If not improving in the next 2 to 3 days have reevaluation as discussed. For any alarming symptoms, high fevers, return of headache or for onset of neck pain have immediate reevaluation as discussed. Discharge Data Discharge Date/Time-TO BE ENTERED AT DEPARTURE: 02/13/19 11:30 Medical Decision Making Is a 33-year-old patient who presents for flulike symptoms which began in the last 3 days associated with a temperature up to 102 at home, no measured temperature at this time. Patient was taking Tylenol at home with some improvement of symptoms as well as Sudafed. Patient reports significant headache at this time with no associated vision change. Patient does report nausea, body ache and upper respiratory symptoms. Patient feeling dehydrated at this time she has had decreased p.o. intake for the last 3 days. Patient denies urinary urgency or frequency. Denies significant bowel changes. Boyfriend was ill with viral symptoms last week which were somewhat similar but lacked significant headache. Patient denies any neck pain associated. Has full range of motion of neck no significant meningeal signs at this time. Patient's influenza and strep testing are negative. Patient's labs are reviewed and reveal a normal CBC with mild decrease in her potassium at 3.3 and elevation of glucose at 174. Reevaluation of the patient reveals significant improvement of her headache, she is feeling much better at this time and is requesting discharge home. Given patient significant improvement I feel that encephalitis or meningitis are extremely unlikely. We did discuss precautions regarding encephalitis or meningitis although likely patient's symptoms are related to a viral flulike illness. We did discuss the use of Tamiflu and the possibility of false negative flu testing. At this time patient does prefer conservative treatments at home and would like to decline Tamiflu treatment which I do not feel is unreasonable. Patient encouraged conservative treatments and return for any alarming or worsening symptoms. Encouraged follow-up with PCP. The patient was stable and requested discharge. Prior to discharge, my usual and customary return precautions were reviewed with the patient - this included follow-up instructions and reasons to return to the Emergency Department if conditions worsens, does not improve as expected, or other new concerns arise. HPI General Date/Time Provider Initiated Documentation: 02/13/19 09:44 . HPI Narrative: Is a 33-year-old patient who presents for 3 days of illness. Patient reports onset of sneezing, congestion, headache and fever. Patient reports in the last 3 days she has had a temperature up to 102. Patient reports cough present without significant difficulty breathing or shortness of breath or wheezing. Patient does report nausea without vomiting. Denies abdominal pain. Patient primarily concerned as she reports a significant headache which is worse than her typical. Patient reports 8 out of 10 headache in the posterior aspect of her head. Denies neck pain. Patient denies radiating pain to arms or legs. Patient reports achiness. Flulike symptoms. Boyfriend ill with similar symptoms 1 week ago. Related Data Home Medications Medication Instructions Recorded Confirmed norethindrone (contraceptive) 0.35 mg PO DAILY 12/31/18 02/13/19 Allergies Allergy/AdvReac Type Severity Reaction Status Date / Time No Known Drug Allergies Allergy Unverified 02/13/19 09:29 General Stated Complaint: GenMedical SOREN: 3 Review of Systems All systems reviewed & are unremarkable except as noted in HPI and below Constitutional Constitutional: Reports chills, Reports fatigue, Reports fever(s), Reports headache(s), Reports malaise and Denies weakness ENT Ears, Nose, Mouth, and Throat: Denies otalgia, Reports headache(s), Reports nasal congestion, Reports nasal discharge, Reports sinus pain, Reports sinus pressure and Reports sore throat Cardiovascular Cardiovascular: Denies chest pain and Denies dyspnea Respiratory Respiratory: Reports cough, Denies pain with cough and Denies dyspnea Gastrointestinal Gastrointestinal: Denies abdominal pain, Reports nausea and Denies vomiting Musculoskeletal Musculoskeletal: Denies numbness Neurologic Neurologic: Reports headache(s), Denies numbness and Denies weakness Endocrine Endocrine: Reports fatigue [facility] Medical History Fibrocystic disease of breast (Inactive 10/01/11) Left leg pain (Inactive 05/21/17) dysthesia over L lateral thigh developed in second trimester of current . Will refer to physical therapy for evaluation and treatment. Social History Smoking/Tobacco Use Status: Current every day Tobacco Type: cigarettes Alcohol Intake: current Alcohol Intake frequency: holidays/special occasions only Drug use: Current Sobriety Substance use type: marijuana Details: pt states that she has not smoked marijuana in over a year. Number of Children: 2 current occupation: [employer] Current gender identity: female What type of physical activity do you participate in: none Seatbelt use: always Do you feel safe at home: Yes Do you feel safe in your relationship?: Yes Female Reproductive History Menstrual control method: progestin IUCD ([id number] EXP=03/2020) History History 5 Para Hx # Term Pregnancies 2 Multiple births Hx # Pregnancies Ectopic pregnancies AB induced Hx Number of Living Children 2 AB spontaneous 3 Past Pregnancies Del. Date GA/Weeks # Outcome Route Wgt Sex Labor Lgth Anesthes ia Location [facility] 09/26/18 Unsuccessful Delivery Date: 09/26/18 On 10/08/18 @ 13:15 Ab DE LA CRUZ,Sandy SAB Exam Narrative Exam Narrative: CONST: Ill-appearing, in no acute distress. Alert and alert. HENMT: Head nomocephalic, normal to inspection. Atraumatic. Hearing grossly normal. TMs appear normal about laterally, pharyngeal erythema present without tonsillar exudate or swelling. EYES: General normal appearance. Alignment normal. Eyelids normal. Conjunctiva normal. NECK: Normal visual inspection. FROM. Trachea midline. No Midline tenderness. Cervical lymphadenopathy present in both posterior and anterior cervical chain CHEST: Normal insepection of the chest. RESP: Normal respiratory effort. Speaking full sentences. No cough. No audible wheezing. No retractions. Breath sounds clear and equal bilaterally. Symmetrical breath sounds. Clear to auscultation. No wheezing, rhonchi or rales CARDIO: No JVD. Regular rate and rhythm, no murmur. MUSCULOSKELETAL: Normal Gait. FROM of all extremities. SKIN: Normal. Dry. No rashes. NEURO: Alert and awake. Speech clear. PSYCH: Normal affect. Cooperative. Course Vital Signs Vital signs: Vital Signs Temperature 36.9 C 02/13/19 09:25 Pulse 101 H 02/13/19 09:25 Respiratory Rate 18 02/13/19 09:25 Blood Pressure 135/81 02/13/19 09:25 Pulse Oximetry 99 02/13/19 09:25 Temperature 36.9 C 02/13/19 09:25 Temperature Source Temporal Artery Scan 02/13/19 09:25 Pulse 101 H 02/13/19 09:25 Respiratory Rate 18 02/13/19 09:25 Respiratory Effort Non-Labored 02/13/19 09:32 Blood Pressure 135/81 02/13/19 09:25 Blood Pressure Position Supine 02/13/19 09:25 Pulse Oximetry 99 02/13/19 09:25 Oxygen Delivery Method Room Air 02/13/19 09:25 Oxygen Flow Rate 0 02/13/19 09:25 Pain Level 9 02/13/19 09:25 Lab/Test Results Lab/Test Results: 02/13/19 09:38 Nasopharynx Influenza Types A,B Antigen - Pending
[2019-02-13] MEDS: Normal Saline 1,000 ML 1000 ML IV (09:55)
[2019-02-13] MEDS: Acetaminophen 500 MG TAB 1000 MG PO (10:05)
[2019-02-13 10:06] LABS: Abs Immature Grans 0.01 k/cumm (0.0-0.09); Absolute Eosinophil Count 0.02 k/cumm (0.0-0.7); Absolute Lymphocyte Count 1.45 k/cumm (1.2-3.4); Absolute Monocyte Count 0.52 k/cumm (0.11-0.7); Absolute Neutrophil Count 3.42 k/cumm (1.2-6.7); Eosinophils % 0.4; HCT 40.9 % (36.0-46.0); HGB 13.7 g/dL (12.0-15.5); Immature Grans % 0.2; Lymphocytes % 26.8; Mean Corp. HGB Concentration 33.5 g/dL (32.0-36.0); Mean Corpuscular Hemoglobin 29.9 pg (27.0-33.0); Mean Corpuscular Volume 89.3 fL (80-95); Mean Platelet Volume 10.1 fL (8.0-11.0); Monocytes % 9.6; Platelet Count 242 x1000/uL (130-400); RBC 4.58 m/cumm (4.00-5.20); White Blood Cell Count 5.42 k/cumm (4.4-10.8)
[2019-02-13] MEDS: Ketorolac 15 MG/ML VIAL IVP (10:06)
[2019-02-13] MEDS: Ondansetron 4 MG/2 ML VIAL IVP (10:06)
[2019-02-13 10:17] LABS: ALT 15 U/L (14-59); AST 18 U/L (15-37); Albumin 3.2 g/dL (3.4-5.0); Alkaline Phosphatase 70 U/L (46-116); Anion Gap 10.7 mmol/L (3-11); BUN 10 mg/dL (7-18); Bilirubin, Total 0.2 mg/dL (0.2-1.0); CO2 27.3 mmol/L (21.0-32.0); CREATININE 0.79 mg/dL (0.55-1.02); Calcium 8.4 mg/dL (8.5-10.1); Chloride 101 mmol/L (98-107); Glucose 174 mg/dL (74-106); Potassium 3.3 mmol/L (3.5-5.1); Sodium 139 mmol/L (136-145); Total Protein 7.6 g/dL (6.4-8.2)
[2019-02-13 10:46] VITALS: BP 105/66; PULSE 75; RESP 18; O2SAT 100
[2019-02-13 11:31] VITALS: BP 109/72; PULSE 75; RESP 18; O2SAT 99
== END 2019-02-13 11:30 | disposition home or self-care (01) ==
PROVIDERS: Emergency Provider Physician Assistant; PCP Nurse Practitioner
DX: R50.9 Fever, unspecified (principal); R51 Headache; R11.0 Nausea; M79.10 Myalgia, unspecified site; E87.6 Hypokalemia; B34.9 Viral infection, unspecified
CPT/HCPCS: 36415; 80053; 87449; 87880; 96361; 96374; 96375; 99284; 85025; 87081; J1885; J2405

== ENCOUNTER 2019-02-27 10:13 | Emergency (ER) | payer BC, SELFPAY ==
[2019-02-27 10:15] VITALS: BP 150/90; PULSE 99; RESP 20; TEMP 36.4; O2SAT 100
--- NOTE | 2019-02-27 10:34 | ED.GENADUL_ITS ---
Discharge Plan Disposition Patient Disposition: HOME Condition: Stable Discharge Details Chief Complaint: FlankPain Clinical Impression: Left lumbar pain Primary Care Provider: Prachi Lewis ED Provider: Eliu Doll Home Meds and New Rx's Prescriptions: New cyclobenzaprine 10 mg tablet 10 mg PO TID PRN (Reason: muscle spasm) Qty: 20 RF: 0 Continued norethindrone (contraceptive) 0.35 mg Tablet 0.35 mg PO DAILY RF: 0 Discharge Instructions Instructions: Cyclobenzaprine (By mouth), Back Pain (ED) Additional Instructions: you can take 1000mg tylenol and 600mg ibuprofen every 6 hours for pain as needed if you need additional pain relief take 1 cyclobenzaprine, do not drink alcohol or drive if you take this medicine if you still have pain Saturday see your primary care provider return to the emergency department for worsening pain, fevers or weakness or difficulty emptying your bladder Medical Decision Making 33 yo female who denies chronic medical problems, does smoke, denies ivdu or heavy alcohol use comes in with cc of acute onset left lower back pain this morn ing, denies any falls or trauma. HAs noticed some burning with urination, denies fevers, chills, did have vomit x1 this morning but none since. Denies abd pain. Has no abdominal tenderness, localizes the pain to the left lateral lumbar region, no cva tenderness, no saddle anesthesia normal gait. Seems most likely muscle spasm vs kidney stone, will obtain lab work and imaging and monitor. No findings on hx or exam to suggest cauda equina or sea labs unremarkable, ct shows no acute findings other than full bladder and urinated after this with only 5cc left in bladder. She feels somewhat better, given locatoin of pain and negative workup suspect musculoskeletal cause of pain, will tx with muscle relaxers, recommended f/u with pcp and return precautions given Differential Diagnosis Differential Diagnosis: pyelo, muscle spasm, kidney stone Imaging Data Radiologic Study: Attestation: I personally reviewed and interpreted this imaging study as follows: Imaging: CT Scan Radiologist's impression: no acute findings, full bladder Lab Data Lab results reviewed: Yes I reviewed the patient's lab results. HPI General Mode of arrival: ambulatory . Date/Time Provider Initiated Documentation: 02/27/19 10:18 . Limitations to Documentation: no limitations . Information obtained by: patient . History of Present Illness 33 year old F presents to the emergency department with the chief complaint of left lower back pain, described as moderate, and it has been constant. No relieving factors improve symptom(s), No exacerbating factors reported . Patient notes other (burning with urination). Patient did receive the following treatments prior to arrival, none Related Data Home Medications Medication Instructions Recorded Confirmed norethindrone (contraceptive) 0.35 mg PO DAILY 12/31/18 02/27/19 cyclobenzaprine 10 mg PO TID PRN #20 tab 02/27/19 Previous Rx's Medication Instructions Recorded cyclobenzaprine 10 mg PO TID PRN #20 tab 02/27/19 Allergies Allergy/AdvReac Type Severity Reaction Status Date / Time No Known Drug Allergies Allergy Unverified 02/27/19 10:18 General Stated Complaint: FlankPain SOREN: 3 Review of Systems All systems reviewed & are unremarkable except as noted in HPI and below Constitutional Constitutional: Denies chills, Denies fever(s) and Denies weakness Cardiovascular Cardiovascular: Denies dyspnea Respiratory Respiratory: Denies cough and Denies dyspnea Gastrointestinal Gastrointestinal: Denies abdominal pain and Denies vomiting Neurologic Neurologic: Denies weakness [facility] Social History Smoking/Tobacco Use Status: Current every day Tobacco Type: cigarettes Alcohol Intake: current Alcohol Intake frequency: holidays/special occasions only Drug use: Never Substance use type: does not use Number of Children: 2 current occupation: [employer] Current gender identity: female What type of physical activity do you participate in: none Seatbelt use: always Do you feel safe at home: Yes Do you feel safe in your relationship?: Yes Female Reproductive History Menstrual control method: progestin IUCD ([id number] EXP=03/2020) History History 5 Para Hx # Term Pregnancies 2 Multiple births Hx # Pregnancies Ectopic pregnancies AB induced Hx Number of Living Children 2 AB spontaneous 3 Past Pregnancies Del. Date GA/Weeks # Outcome Route Wgt Sex Labor Lgth Anesthes ia Location [facility] 09/26/18 Unsuccessful Delivery Date: 09/26/18 On 10/08/18 @ 13:15 Sandy Berger LPN SAB Exam Const General: no acute distress Orientation: alert HENMT Head: normal to inspection Ears: external ears normal General nose exam: external nose normal Mouth: moist mucous membranes Eyes General: appearance normal, both eyes and all related structures Neck Neck: normal visual inspection Resp Effort & Inspection: normal respiratory effort and able to speak in complete sentences Cardio Rate: regular rate Skin General skin exam: no rashes or lesions noted Neuro General: alert and oriented x3 Extrem General: normal to inspection Psych Mental Status: mental status grossly normal Course Vital Signs Vital signs: Vital Signs Temperature 36.4 C L 02/27/19 10:15 Pulse 99 H 02/27/19 10:15 Respiratory Rate 02/27/19 10:15 Blood Pressure 150/90 H 02/27/19 10:15 Pulse Oximetry 100 02/27/19 10:15 Temperature 36.4 C L 02/27/19 10:15 Temperature Source Skin 02/27/19 10:15 Pulse 99 H 02/27/19 10:15 Respiratory Rate 02/27/19 10:15 Respiratory Effort Non-Labored 02/27/19 10:18 Blood Pressure 150/90 H 02/27/19 10:15 Blood Pressure Position Sitting 02/27/19 10:15 Pulse Oximetry 100 02/27/19 10:15 Oxygen Delivery Method Room Air 02/27/19 10:15 Oxygen Flow Rate 0 02/27/19 10:15 Pain Level 9 02/27/19 10:19 Comment 02/27/19 10:15
[2019-02-27 10:48] LABS: Bilirubin Negative (Negative); Blood Negative (Negative); Clarity Clear (Clear); Glucose Negative (Negative); Ketones Negative (Negative); Leukocyte Esterase Negative (Negative); Nitrite Negative (Negative); Urobilinogen 0.2 EU/dL (Up TO 0.2)
[2019-02-27] MEDS: Normal Saline 1,000 ML 1000 ML IV (10:55)
[2019-02-27] MEDS: Ketorolac 15 MG/ML VIAL IVP (10:55)
[2019-02-27 10:57] LABS: Abs Immature Grans 0.04 k/cumm (0.0-0.09); Absolute Basophil Count 0.03 k/cumm (0.0-0.2); Absolute Eosinophil Count 0.31 k/cumm (0.0-0.7); Absolute Lymphocyte Count 2.28 k/cumm (1.2-3.4); Absolute Monocyte Count 0.42 k/cumm (0.11-0.7); Basophils % 0.4; Eosinophils % 3.9; HCT 39.7 % (36.0-46.0); HGB 13.2 g/dL (12.0-15.5); Immature Grans % 0.5 %; Lymphocytes % 28.9; Mean Corp. HGB Concentration 33.2 g/dL (32.0-36.0); Mean Corpuscular Hemoglobin 29.9 pg (27.0-33.0); Mean Corpuscular Volume 89.8 fL (80-95); Mean Platelet Volume 10.9 fL (8.0-11.0); Monocytes % 5.3; Platelet Count 417 x1000/uL (130-400); RBC 4.42 m/cumm (4.00-5.20); RBC Distribution Width 12.4 % (11.7-14.6); White Blood Cell Count 7.88 k/cumm (4.4-10.8)
--- NOTE | 2019-02-27 11:27 | DI.CT_ITS ---
EXAM: CT RENAL COLIC WO CLINICAL HISTORY: left flank pain TECHNIQUE: COMPARISON: No exams were available for comparison FINDINGS: CT examination of the abdomen and pelvis was performed without contrast administration. Images obtai rashi through the lung bases are unremarkable. Visualized portions of the liver and spleen have a norm al noncontrast appearance. Gallbladder and bile ducts are CT normal. Pancreas appears intact. Abdo nam aorta is of normal diameter. No significant abdominal wall hernia. No significant abdominal o r pelvic adenopathy. Appendix is normal. No focal bowel pathology. Chef German structures appear intact. Adrenals appear normal bilaterally. Kidneys are normal in size and shape. No nephrolithiasis hydron ephrosis or ureterolithiasis. Urinary bladder is distended. IMPRESSION: Urinary bladder distension noted. No evidence urinary tract calcification or obstruction.
[2019-02-27 12:09] LABS: ALT 19 U/L (14-59); AST 15 U/L (15-37); Albumin 3.1 g/dL (3.4-5.0); Alkaline Phosphatase 69 U/L (46-116); Anion Gap 8.5 mmol/L (3-11); BUN 12 mg/dL (7-18); Bilirubin, Total 0.2 mg/dL (0.2-1.0); CO2 26.5 mmol/L (21.0-32.0); CREATININE 0.58 mg/dL (0.55-1.02); Calcium 8.3 mg/dL (8.5-10.1); Chloride 106 mmol/L (98-107); Glucose 89 mg/dL (74-106); Lipase 111 U/L (73-393); Magnesium 1.7 mg/dL (1.8-2.4); Potassium 3.9 mmol/L (3.5-5.1); Sodium 141 mmol/L (136-145); Total Protein 6.6 g/dL (6.4-8.2)
== END 2019-02-27 12:20 | disposition home or self-care (01) ==
PROVIDERS: Emergency Provider Emergency Medicine; PCP Nurse Practitioner
DX: R11.2 Nausea with vomiting, unspecified (principal); M54.5 Low back pain; R30.0 Dysuria
CPT/HCPCS: 36415; 80053; 81025; 83690; 96361; 96374; 99284; 74176; 81003; 83735; 85025; J1885

== ENCOUNTER 2019-07-25 17:14 | Emergency (ER) | payer BC, SELFPAY ==
[2019-07-25] VITALS (35 sets, daily range): BP systolic 104–137; BP diastolic 62–95; PULSE 61–120; RESP 13–30; O2SAT 96–100
[2019-07-25 17:25] LABS: Abs Immature Grans 0.04 k/cumm (0.0-0.09); Absolute Basophil Count 0.05 k/cumm (0.0-0.2); Absolute Eosinophil Count 0.45 k/cumm (0.0-0.7); Absolute Lymphocyte Count 3.52 k/cumm (1.2-3.4); Absolute Monocyte Count 0.58 k/cumm (0.11-0.7); Absolute Neutrophil Count 5.15 k/cumm (1.2-6.7); Basophils % 0.5; Eosinophils % 4.6; HGB 13.4 g/dL (12.0-15.5); Immature Grans % 0.4 %; Mean Corp. HGB Concentration 34.4 g/dL (32.0-36.0); Mean Corpuscular Hemoglobin 30.7 pg (27.0-33.0); Mean Corpuscular Volume 89.2 fL (80-95); Monocytes % 5.9; Neutrophils % 52.6; Platelet Count 313 x1000/uL (130-400); RBC 4.37 m/cumm (4.00-5.20); RBC Distribution Width 12.5 % (11.7-14.6); White Blood Cell Count 9.79 k/cumm (4.4-10.8)
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
[2019-07-25 17:38] LABS: ALT 30 U/L (14-59); AST 27 U/L (15-37); Albumin 3.9 g/dL (3.4-5.0); Alkaline Phosphatase 75 U/L (46-116); Anion Gap 15.3 mmol/L (3-11); BUN 7 mg/dL (7-18); Bilirubin, Total 0.2 mg/dL (0.2-1.0); CO2 19.7 mmol/L (21.0-32.0); CREATININE 0.85 mg/dL (0.55-1.02); Calcium 8.6 mg/dL (8.5-10.1); Chloride 107 mmol/L (98-107); ETHANOL BLOOD 230.9 mg/dL (<3); Glucose 88 mg/dL (74-106); Potassium 3.3 mmol/L (3.5-5.1); Sodium 142 mmol/L (136-145); Total Protein 7.8 g/dL (6.4-8.2)
[2019-07-25 17:48] LABS: HCG Qual (Serum) Negative
[2019-07-25] MEDS: Normal Saline 1,000 ML 150 ML IV (17:54)
[2019-07-25] MEDS: HYDROmorphone 2 MG/ML VIAL 0.5 MG IVP (17:54)
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
[2019-07-25] MEDS: Omnipaque 350 MG/ML 100 ML BTL IJ (18:05)
[2019-07-25] MEDS: Normal Saline - Diluent 50 ML VIAL IV (18:06)
[2019-07-25] MEDS: Normal Saline Flush 10 ML SYR IVP (18:07)
[2019-07-25] MEDS: Normal Saline 1,000 ML 2000 ML IV (18:08)
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
== END 2019-07-25 21:12 | disposition home or self-care (01) ==
PROVIDERS: Emergency Medicine; Emergency Provider Emergency Medicine; PCP Nurse Practitioner
DX: S01.01XA Laceration without foreign body of scalp, initial encounter (principal); S20.212A Contusion of left front wall of thorax, initial encounter; F10.120 Alcohol abuse with intoxication, uncomplicated; Y90.7 Blood alcohol level of 200-239 mg/100 ml; V86.55XA Driver of 3- or 4- wheeled all-terrain vehicle (ATV) injured in nontraffic accident, initial encounter; E87.6 Hypokalemia; R93.2 Abnormal findings on diagnostic imaging of liver and biliary tract
CPT/HCPCS: 12002; 36415; 74177; 80053; 96361; 96374; 99285; 70450; 71260; 72125; 80320; 84703; 85025; 99284; J3490; L3650

== ENCOUNTER 2019-07-30 01:31 | Outpatient (CLI) | payer BC, SELFPAY ==
--- NOTE | 2019-07-30 | DI.US_ITS ---
EXAM: US ABDOMEN CLINICAL HISTORY: FATTY INFILTRATION OF LIVER,K76.0, VS LESION, F/U ABNL CT TECHNIQUE: Ultrasound abdomen performed using standard protocol. COMPARISON: US US abdomen limited from 09/26/[address] CHEST/ABD/PEL W from 07/25/2019 FINDINGS: ABDOMINAL AORTA AND IVC: Visualized portions normal caliber. PANCREAS: Normal where visualized. LIVER: Normal. Hepatopedal flow in the Portal Vein. GALLBLADDER: No evidence of cholelithiasis. No evidence of wall thickening. No pericholecystic fluid identified. BILIARY SYSTEM: Common bile duct measures < 7 mm. No intrahepatic biliary ductal dilation. BIRCH'S SIGN: Negative. KIDNEYS: Kidneys are symmetric in size. No evidence of renal calculi. No evidence of hydronephrosis. No renal mass or cyst identified. SPLEEN: Not enlarged. ASCITES: None seen. IMPRESSION: Normal sonographic appearance of the upper abdomen. No evidence of a hepatic mass sonographically. T he area probably reflects a focal fatty infiltration. A follow-up CT scan may be obtained in 4-6 mon ths for re-evaluation. DATA REPOSITORY:
== END 2019-07-30 01:51 ==
PROVIDERS: PCP Nurse Practitioner; Visit Provider Nurse Practitioner
DX: K76.0 Fatty (change of) liver, not elsewhere classified (principal)
CPT/HCPCS: 76700

== ENCOUNTER 2019-08-03 10:54 | Emergency (ER) | payer BC, SELFPAY ==
[2019-08-03 11:00] VITALS: BP 130/84; PULSE 74; TEMP 36.7; O2SAT 100
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
== END 2019-08-03 11:31 | disposition home or self-care (01) ==
PROVIDERS: Emergency Provider Registered Nurse Emergency; PCP Nurse Practitioner
DX: S01.01XD Laceration without foreign body of scalp, subsequent encounter (principal); V86.55XD Driver of 3- or 4- wheeled all-terrain vehicle (ATV) injured in nontraffic accident, subsequent encounter; Z48.02 Encounter for removal of sutures

== ENCOUNTER 2019-11-18 03:01 | Outpatient (CLI) | payer BC, SELFPAY ==
--- NOTE | 2019-11-18 06:30 | DI.US_ITS ---
EXAM: US PELVIS TRANSVAGINAL CLINICAL HISTORY: Pelvic pain, dyspareunia,R10.2 TECHNIQUE: Transabdominal and transvaginal imaging was performed using standard protocol. COMPARISON: US US PELVIS TRANSVAGINAL from 10/15/[address] CHEST/ABD/PEL W from 07/25/2019 FINDINGS: UTERUS: Anteverted. 7.6 x 3.7 x 5.5 Endometrium: 6.2 millimeters Myometrium: Unremarkable. Cervix: Nabothian cyst OVARIES: Right: Cyst or mass: 2.9 centimeter complex cyst which could represent a corpus luteum cyst. Left: Cyst or mass: None. DOPPLER: Color: Symmetric and uniform flow to both ovaries. No hyperemia. Duplex: Normal ovarian arterial waveforms visualized. CUL-DE-SAC: Free fluid: Trace IMPRESSION: 1. Normal-appearing uterus with endometrial stripe within normal limits. 2. Unremarkable bilateral ovaries. DATA REPOSITORY:
== END 2019-11-18 03:21 ==
PROVIDERS: PCP Nurse Practitioner; Visit Provider Nurse Practitioner Women's Health
DX: R10.2 Pelvic and perineal pain (principal)
CPT/HCPCS: 76830; 76856

== ENCOUNTER 2020-04-18 04:28 | Outpatient (CLI) | payer BC, SELFPAY ==
[2020-04-18 16:27] LABS: Abs Immature Grans 0.07 10^3/uL (0.0-0.06); Absolute Basophil Count 0.05 10^3/uL (0.0-0.2); Absolute Lymphocyte Count 2.34 10^3/uL (1.2-3.4); Absolute Monocyte Count 0.54 10^3/uL (0.1-0.8); Absolute Neutrophil Count 6.32 10^3/uL (1.2-6.7); Basophils % 0.5; Eosinophils % 3.1; HCT 36.7 % (36.0-46.0); HGB 12.7 g/dL (11.2-15.7); Immature Grans % 0.7; Lymphocytes % 24.3; MCH 32.4 pg (27.0-33.0); MCHC 34.6 % (32.0-36.0); MCV 93.6 fL (80-95); MPV 10.3 fL (8.0-11.0); Monocytes % 5.6; Neutrophils % 65.8; Nucleated RBC 0 %; Platelet Count 305 10^3/uL (130-400); RBC 3.92 10^6/uL (3.93-5.22); RDW 12.3 % (11.7-14.6); RDW-SD 42.5 fL; WBC 9.62 10^3/uL (4.4-10.8)
[2020-04-19 10:44] LABS: Varicella IgG Antibody Negative (See Note)
[2020-04-19 10:49] LABS: Rubella IgG Ab (UVM) Negative (See Note)
[2020-04-19 11:56] LABS: Hepatitis B Surface Ag Negative (Negative)
[2020-04-19 12:14] LABS: Hepatitis C Ab w Rflx HCV PCR Negative (Negative)
[2020-04-19 12:27] LABS: HIV-1/2 Ag & Ab Screen Negative (Negative)
[2020-04-20 13:08] LABS: Syphilis Total Ab w/Reflex Nonreactive (Nonreactive)
[2020-04-27 16:24] LABS: Result Summary NEGATIVE; Specimen WB Whole Blood
[2020-05-05 11:08] LABS: Specimen WB Whole Blood
== END 2020-04-18 04:29 | disposition home or self-care (01) ==
LOC: LBO 04:28
PROVIDERS: PCP Nurse Practitioner; Visit Provider Advanced Practice Midwife
DX: Z34.91 Encounter for supervision of normal pregnancy, unspecified, first trimester (principal); Z11.4 Encounter for screening for human immunodeficiency virus [HIV]; Z11.59 Encounter for screening for other viral diseases; Z36.89 Encounter for other specified antenatal screening
CPT/HCPCS: 36415; 81329; 86787; 86803; 86850; 86900; 86901; 87340; 87389; 81220; 85025; 86762; 86780

== ENCOUNTER 2020-04-18 15:41 | Outpatient (REF) | payer BC, SELFPAY ==
--- NOTE | 2020-04-18 15:15 | PAPFT_PTH ---
PATIENT: Chantel Best LOC: [facility] U#:[id number] AGE/SX: 34/F ROOM: RE04/18/[address]: Lauryn Gutiérrez : 1985 BED: DIS: 04/18/2020 SPEC #: [id number] RECD: 04/18/20 17:44 STATUS: JUN REMarquis #: [id number] CARA: 04/18/20 15:[address]: Lauryn Gutiérrez DEPT: [facility] Cytology RECD BY: Meredith Finn ENTERED: 04/18/20 17:45 SP TYPE: PAPFT OTHR DR: Prachi Lewis Tissues: 1 - CX/ENDOCX FOR PAP SMEARS Procedures: PAP THIN PREP/UVM Screening HPV DNA PROBE Comments: [id number]
[2020-04-18 18:10] LABS: *AMPHETAMINES SCREEN URINE Negative (Negative); *BARBITURATES SCREEN URINE Negative (Negative); *BENZODIAZEPINES SCREEN URINE Negative (Negative); Cannabinoids THC Negative (Negative); Cocaine Screen,Urine Negative (Negative); METHADONE URINE SCREEN Negative (Negative); OPIATES URINE SCREEN Negative (Negative)
[2020-04-18 18:13] LABS: Tricyclic Antidepressants Negative (Negative)
[2020-04-20 10:34] LABS: Chlamydia Result Negative (Negative); GC Result Negative (Negative)
[2020-04-23 10:28] LABS: Buprenorphine Negative ng/mL (Cutoff: 5.0); Norbuprenorphine Negative ng/mL (Cutoff: 2.5)
== END 2020-04-18 15:42 | disposition home or self-care (01) ==
LOC: LBN 15:41
PROVIDERS: PCP Nurse Practitioner; Visit Provider Advanced Practice Midwife
DX: Z34.91 Encounter for supervision of normal pregnancy, unspecified, first trimester (principal); Z11.3 Encounter for screening for infections with a predominantly sexual mode of transmission; Z12.4 Encounter for screening for malignant neoplasm of cervix; Z11.51 Encounter for screening for human papillomavirus (HPV)
CPT/HCPCS: 80307; 87491; 87591; 88142; 87086; 87624

== ENCOUNTER 2020-04-27 14:24 | Outpatient (CLI) | payer BC, SELFPAY ==
[2020-04-27 16:07] LABS: Kit/Specimen SENT
== END 2020-04-27 14:25 | disposition home or self-care (01) ==
LOC: LBO 14:24
PROVIDERS: PCP Nurse Practitioner; Visit Provider Advanced Practice Midwife
DX: Z34.91 Encounter for supervision of normal pregnancy, unspecified, first trimester (principal); Z36.89 Encounter for other specified antenatal screening
CPT/HCPCS: 36415

== ENCOUNTER 2020-09-05 01:28 | Outpatient (CLI) | payer BC, SELFPAY ==
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
== END 2020-09-05 01:48 ==
PROVIDERS: PCP Nurse Practitioner; Visit Provider Obstetrics & Gynecology Gynecology
DX: Z34.83 Encounter for supervision of other normal pregnancy, third trimester (principal)
CPT/HCPCS: 76816

== ENCOUNTER 2020-09-06 02:52 | Outpatient (CLI) | payer BC, SELFPAY ==
[2020-09-06 15:47] LABS: HCT 32.9 % (36.0-46.0); HGB 10.9 g/dL (11.2-15.7); MCH 30.8 pg (27.0-33.0); MCHC 33.1 % (32.0-36.0); MCV 92.9 fL (80-95); MPV 10.3 fL (8.0-11.0); Platelet Count 246 10^3/uL (130-400); RBC 3.54 10^6/uL (3.93-5.22); RDW 12.3 % (11.7-14.6); RDW-SD 42.3 fL; WBC 9.63 10^3/uL (4.4-10.8)
[2020-09-06 15:49] LABS: Glucose,1 Hr (Glucola) 143 mg/dL (80-140)
== END 2020-09-06 02:53 | disposition home or self-care (01) ==
LOC: LBO 02:52
PROVIDERS: PCP Nurse Practitioner; Visit Provider Obstetrics & Gynecology Gynecology
DX: O26.893 Other specified pregnancy related conditions, third trimester; O43.193 Other malformation of placenta, third trimester; Z67.91 Unspecified blood type, Rh negative; O36.0130 Maternal care for anti-D [Rh] antibodies, third trimester, not applicable or unspecified; O99.810 Abnormal glucose complicating pregnancy; Z3A.29 29 weeks gestation of pregnancy
CPT/HCPCS: 36415; 82950; 85027; 86850; 86900; 86901; 90384

== ENCOUNTER 2020-09-09 04:02 | Outpatient (CLI) | payer BC, SELFPAY ==
[2020-09-09 13:31] LABS: Glucose 1 Hour 177 mg/dL
[2020-09-09 15:36] LABS: Glucose 3 Hour 111 mg/dL
== END 2020-09-09 04:03 | disposition home or self-care (01) ==
LOC: LBO 04:08
PROVIDERS: PCP Nurse Practitioner; Visit Provider Obstetrics & Gynecology Gynecology
DX: O99.810 Abnormal glucose complicating pregnancy (principal); Z3A.29 29 weeks gestation of pregnancy
CPT/HCPCS: 36415; 82951

== ENCOUNTER 2020-10-17 16:39 | Outpatient (REF) | payer BC, SELFPAY ==
[2020-10-17 17:49] LABS: *AMPHETAMINES SCREEN URINE Negative (Negative); *BARBITURATES SCREEN URINE Negative (Negative); *BENZODIAZEPINES SCREEN URINE Negative (Negative); Cannabinoids THC Negative (Negative); Cocaine Screen,Urine Negative (Negative); METHADONE URINE SCREEN Negative (Negative); OPIATES URINE SCREEN Negative (Negative)
[2020-10-17 17:52] LABS: Tricyclic Antidepressants Negative (Negative)
[2020-10-22 12:01] LABS: Buprenorphine Negative ng/mL (Cutoff: 5.0); Norbuprenorphine Negative ng/mL (Cutoff: 2.5)
== END 2020-10-17 16:40 | disposition home or self-care (01) ==
LOC: LBN 16:39
PROVIDERS: PCP Nurse Practitioner; Visit Provider Obstetrics & Gynecology
DX: Z34.93 Encounter for supervision of normal pregnancy, unspecified, third trimester (principal); Z36.85 Encounter for antenatal screening for Streptococcus B; Z3A.34 34 weeks gestation of pregnancy
CPT/HCPCS: 80307; 87081

== ENCOUNTER 2020-11-02 11:32 | Inpatient (IN) | payer BC, SELFPAY ==
[2020-11-02] VITALS (7 sets, daily range): BP systolic 130–144; BP diastolic 75–87; PULSE 78–88; RESP 16–20; TEMP 36.5–36.9; O2SAT 99
[2020-11-02 10:44] LABS: HCT 34.2 % (36.0-46.0); HGB 10.9 g/dL (11.2-15.7); MCHC 31.9 % (32.0-36.0); MPV 11.5 fL (8.0-11.0); Platelet Count 229 10^3/uL (130-400); RBC 3.76 10^6/uL (3.93-5.22); RDW 13.2 % (11.7-14.6); RDW-SD 42.6 fL; WBC 8.36 10^3/uL (4.4-10.8)
[2020-11-02 11:02] LABS: ALT 21 U/L (14-59); AST 21 U/L (15-37); Albumin 2.3 g/dL (3.4-5.0); Alkaline Phosphatase 139 U/L (46-116); Anion Gap 10.4 mmol/L (3-11); BUN 10 mg/dL (7-18); Bilirubin, Total 0.3 mg/dL (0.2-1.0); CO2 21.6 mmol/L (21.0-32.0); CREATININE 0.8 mg/dL (0.55-1.02); Calcium 8.5 mg/dL (8.5-10.1); Chloride 104 mmol/L (98-107); Glucose 101 mg/dL (74-106); Potassium 4.2 mmol/L (3.5-5.1); Sodium 136 mmol/L (136-145); Total Protein 6.6 g/dL (6.4-8.2)
[2020-11-02 11:30] LABS: PROTEIN 31.2 mg/dL
[2020-11-02 11:32] LABS: COMMENT (LAB VIEW ONLY) 46.39 mg/dL; Prot/Crea Ur Ratio 0.67
[2020-11-02 11:39] LABS: Uric Acid 6.4 mg/dL (2.6-6.0)
[2020-11-02 13:14] LABS: Source Nasal/Nares
--- NOTE | 2020-11-02 16:36 | HPE_ITS ---
Date of service: 11/02/20 Time of Service: 16:44 Assessment and Plan Assessment and plan (1) Pre-eclampsia affecting , antepartum: Status: Acute Assessment and plan: Pt is 35yo female currently 37w4d EGA who has been counseled to present for cervical ripening prior to Oxytocin IOL for preeclampsia. VSS. Pt's only complaint was mild headached earlier in the day that has now subsided. She will remain in hosp during cervical ripening. OB-HPI Labor/Delivery History of Present Illness Reason for Visit: IUP at Term, Headache Chief Complaint: Maternal Discomfort (Evaluation of preeclampsia) , Associated Signs and Symptoms of Maternal Discomfort: Headache. MONTY Calculator Estimated Delivery Date Method Current WG Current Estimate 11/19/20 LMP (Certain) 37w 4d Other Estimates 11/21/20 Ultrasound #1 37w 2d History of Present Expected Delivery Route/Plan - papito [facility] care FOB - [facility] ( 2nd child with Chantel) Specific Issues/Plan - Smoker - quit - Rh negative. 09/06/20 Rhogam inj. - History of preeclampsia - ASA recommended 1 tab QOD, 2 tabs QOD. - CF screen negative/ [place] LP X 3 male/ SMA neg Rubella and Varicella non immune, discuss w/pt reviewed 04/26/20 states she was vaccinated, will do MMR PP and consider Varicela Vaccine as well. - 06/20/20. Marginal cord insertion. Pacenta 1.3cm from placental edge. 09/05/20 F/U u/s: Placenta 3.7cm from placental edge. 10/03/20. Declines Covid vaccine. FOB Ford has received Covid. vaccine. Assessment: History Updated Narrative: Pt presented for care at 7w2d EGA. 1st trimester BP114/60. 3rd trimester BP 136/80. TWG 55lbs. Pt reports onset of TRUJILLO last night. Frontal, no visual changes. LE edema bilaterally. Call office since she had been counseled at time of previous visit re; S/S of Preeclampsia Review of Systems Constitutional Constitutional: Reports as per HPI (no RUQ pain. C/O Metcalfe Patel contractions) and Reports headache(s) ENT Ears, Nose, Mouth, and Throat: Reports headache(s) Cardiovascular Cardiovascular: Reports leg edema (bilateral tibial edema) Respiratory Respiratory: Reports system reviewed and no additional complaints, except as documented Genitourinary Genitourinary: Reports system reviewed and no additional complaints, except as documented Musculoskeletal Musculoskeletal: Reports system reviewed and no additional complaints, except as documented Integumentary/Breasts Skin/Breast: Reports system reviewed and no additional complaints, except as documented Neurologic Neurologic: Reports headache(s) Psychiatric Psychiatric: Reports system reviewed and no additional complaints, except as documented PFSH Medical History Ectopic Encounter for supervision of other normal , third trimester Fibrocystic disease of breast (10/01/11) GERD (gastroesophageal reflux disease) Glucose intolerance of Left leg pain (05/21/17) dysthesia over L lateral thigh developed in second trimester of current . Will refer to physical therapy for evaluation and treatment. Marginal insertion of umbilical cord affecting management of mother in second trimester Smoker Surgical History Other ectopic with intrauterine [place] teeth extracted Family History Mother Diabetes Paternal Grandmother Breast cancer Social History Smoking/Tobacco Use Status: Former Tobacco Use Smoking risk assessment performed?: Yes Alcohol Intake: current Alcohol Intake frequency: a few times a week Drug use: Never Substance use type: does not use Number of Children: 2 current occupation: [employer] Current gender identity: female What type of physical activity do you participate in: none Seatbelt use: always Do you feel safe at home: Yes Do you feel safe in your relationship?: Yes Female Reproductive History Menstrual control method: progestin IUCD (LOT=[id number] EXP=03/2020) History History 6 Para 2 Hx # Term Pregnancies 2 Multiple births Hx # Pregnancies Ectopic pregnancies 1 AB induced 2 Hx Number of Living Children 2 AB spontaneous 1 Past Pregnancies Del. Date GA/Weeks # Outcome Route Wgt Sex Labor Lgth Anesthes ia Location Prov Complic 06/02/09 40 No Successful vaginal 7 lb 10 oz Male [address] Fernandez 08/29/17 38 No Successful vaginal 6 lb 12 oz Male [address] Delivery Date: 06/02/09 IOL at term due to maternal discomfort. Lauryn Gutiérrez Delivery Date: 08/29/17 Preeclampsia, proteinuria IOL at 38 weeks. Lauryn Gutiérrez Meds Allergies and Home Medications Allergies Allergy/AdvReac Type Severity Reaction Status Date / Time No Known Drug Allergies Allergy Verified 11/02/20 12:34 Home Medications Medication Instructions Recorded Confirmed Type prenat.vits,marcial,[id number] 1 tab PO DAILY 03/15/20 11/02/20 History acetaminophen 325 mg capsule 650 mg PO ONCE PRN cap 04/18/20 11/02/20 History aspirin 81 mg tablet,delayed 81 mg PO DAILY #45 tab 04/18/20 11/02/20 Rx release pantoprazole 40 mg tablet,delayed 40 mg PO DAILY #60 tab 07/21/20 11/02/20 Rx release Exam Physical Exam Vital signs: Temp Pulse Resp BP 97.9 F 88 20 144/84 H 11/02/20 14:53 11/02/20 14:53 11/02/20 14:53 11/02/20 14:53 Constitutional Constitutional: no acute distress Comments: Pt is resigned to remaining inpatient and undergoing cerivical ripening overnight with plan to augment with Oxytocin infusion in the am. Detailed Labor and Delivery Exam Dilation: 0 (fingertip.) Effacement (%): 50 station: -2 Position: OA Cervix position: mid Consistency: medium Pisano Score: Cervical Points Exam 0 1 2 3 Dilation Closed 1-2cm 3-4 cm 5-6cm Effacement 0-30% 40-50% 60-70% 80% Consistency Firm Medium Soft Station -3 -2 -1,0 +1,+2 Position Posterior Mid Anterior PISANO Score(Cervical Ripeness Score): 7 Amniotic Membrane Status: Intact Monitor Mode: External Contraction Frequency(min): Q 2-4min. Uterine irritabilty pattern Contraction Duration(sec): 40sec Contraction Intensity: Mild/Moderate Fetus A Heart Rate Baseline: 140 Monitor Accelerations: 15 X 15 Monitor Decelerations: None Variability: Moderate (6-25 BPM) Presentation: Cephalic Categories: Category I Est. Weight: 7 lb 7.931 oz HEENT Exam HEENT Exam: Normal Neck Exam Neck Exam: Normal Respiratory Exam Respiratory Exam: Normal Cardiovascular Exam Cardiovascular Exam: Normal Abdominal Exam Abdominal Exam: Normal (gravid, soft, non-tender) Rectal Exam Rectal Exam: Not Done Exam Exam: Normal Extremities Exam Extremities Exam: Normal Back/Spine/Pelvis Exam Back Exam: Normal Pelvis Adequate: Yes Detailed Skin Exam Skin: Present intact Neurological Exam Neurological Exam: Normal (1+ patellar DTRs. 1 beat of clonus) Psychiatric Exam Psychiatric Exam: Normal Additional findings Additional findings: After verbal consent was obtained patient was placed in the dorsolithotomy position and a bivalve speculum was inserted into the vagina and the cervix cleansed with Betadine. Cervical ripening device was then inserted into the vagina once past the internal os the uterine balloon was inflated with 80 cc of normal saline. Similar 80 cc was then inserted into the vaginal balloon. It was taped to the patient's leg. All instruments were removed from the patient vagina she tolerated the procedure well. Results Abnormal Lab Findings: Abnormal Labs 11/02/20 11/02/20 11/02/20 10:20 10:20 10:20 RBC 3.76 L Hgb 10.9 L Hct 34.2 L MCHC 31.9 L MPV 11.5 H Uric Acid 6.4 H Alkaline Phosphatase 139 H Albumin 2.3 L Risk Assessment Risk for Shoulder Dystocia Historical/Initial OB: NEGATIVE FOR: Pelvic Abnormality, Pre- BMI>30, Previous Shoulder Dystocia or Previous Macrosomia Delivery Plan @ 36wks: Risk for Pre-Eclampsia Yes, if one or more: POSTIVE FOR: Hx Pre-E/Gest HTN; NEGATIVE FOR: Chronic HTN, Multiple Gestation, Pre-gestational DM, Renal Dise ase, Systemic Lupus or APA Syndrome Yes, if 2 or more: NEGATIVE FOR: Nulliparity, Age>= 35 yrs, >10yr btwn pregnancies, BMI>30, ethinicty, Mother/Sister w/ Pre-E or Previous IUGR Risk for Post- Hemorrhage Initial: NEGATIVE FOR: Multiple Gestation, Previous PPH, Known Clotting Deficiency, Grand Multiparity or Anticoagulation Counseled re: Active Management: Yes Date/Initials: andressa 10/17/20 Risks Reviewed Risks Reviewed Upon Admission: Yes
[2020-11-02 17:54] LABS: COVID-19 PCR Negative (Negative)
[2020-11-02] MEDS: Zolpidem 5 MG TAB 10 MG PO (20:07)
[2020-11-03] VITALS (46 sets, daily range): BP systolic 125–162; BP diastolic 66–96; PULSE 63–92; RESP 12–18; TEMP 36.5–36.8; O2SAT 98–100; BMI 36.1
--- NOTE | 2020-11-03 07:38 | W.PM.OBNL1 ---
Date of service: 11/03/20 Time of Service: 07:41 Informed Consent Informed Consent: Augmentation of Labor (verbal) Pelvic Exam Dilation: 3 Effacement (%): 80 station: -1 Position: OA Cervix Position: mid Consistency: soft Vaginal Exam Presentation: Cephalic Comments: Intact BOW Contractions Monitor Mode: External Contraction Frequency(min): irregular Contraction Duration(sec): 30-45 Intensity: Mild Fetus A Monitor: External (US) Heart Rate Baseline: 140 Presentation: Cephalic Variability: Moderate (6-25 BPM) Categories: Category I FHR Rhythm: Regular Characteristics: Normal Accelerations: 15 X 15 Decelerations: None Amniotic Membrane Status: Intact Assessment and Plan Assessment and plan (1) Pre-eclampsia affecting , antepartum: Status: Acute (2) Encounter for induction of labor: Status: Acute Objective Abnormal lab results 11/02/20 11/02/20 11/02/20 Range/Units 10:20 10:20 10:20 RBC 3.76 L (3.93-5.22) 10^6/uL Hgb 10.9 L (11.2-15.7) g/dL Hct 34.2 L (36.0-46.0) % MCHC 31.9 L (32.0-36.0) % MPV 11.5 H (8.0-11.0) fL Uric Acid 6.4 H (2.6-6.0) mg/dL Alkaline Phosphatase 139 H (46-116) U/L Albumin 2.3 L (3.4-5.0) g/dL Temp Pulse Resp BP Pulse Ox 98.1 F 89 16 130/81 99 11/03/20 04:45 11/03/20 04:45 11/03/20 04:45 11/03/20 04:45 11/03/20 04:45 Laboratory Results WBC 8.36 10^3/uL (4.4-10.8) 11/02/20 10:20 RBC 3.76 10^6/uL (3.93-5.22) L 11/02/20 10:20 Hgb 10.9 g/dL (11.2-15.7) L 11/02/20 10:20 Hct 34.2 % (36.0-46.0) L 11/02/20 10:20 MCV 91.0 fL (80-95) 11/02/20 10:20 MCH 29.0 pg (27.0-33.0) 11/02/20 10:20 MCHC 31.9 % (32.0-36.0) L 11/02/20 10:20 RDW 13.2 % (11.7-14.6) 11/02/20 10:20 Plt Count 229 10^3/uL (130-400) 11/02/20 10:20 MPV 11.5 fL (8.0-11.0) H 11/02/20 10:20 Sodium 136 mmol/L (136-145) 11/02/20 10:20 Potassium 4.2 mmol/L (3.5-5.1) 11/02/20 10:20 Chloride 104 mmol/L (98-107) 11/02/20 10:20 Carbon Dioxide 21.6 mmol/L (21.0-32.0) 11/02/20 10:20 Anion Gap 10.4 mmol/L (3-11) 11/02/20 10:20 BUN 10 mg/dL (7-18) 11/02/20 10:20 Creatinine 0.8 mg/dL (0.55-1.02) 11/02/20 10:20 Estimated GFR/1.73 m2 >= 60.00 (mL/min/1.73m2) 11/02/20 10:20 Glucose 101 mg/dL (74-106) 11/02/20 10:20 Uric Acid 6.4 mg/dL (2.6-6.0) H 11/02/20 10:20 Calcium 8.5 mg/dL (8.5-10.1) 11/02/20 10:20 Total Bilirubin 0.3 mg/dL (0.2-1.0) 11/02/20 10:20 AST 21 U/L (15-37) 11/02/20 10:20 ALT 21 U/L (14-59) 11/02/20 10:20 Alkaline Phosphatase 139 U/L (46-116) H 11/02/20 10:20 Total Protein 6.6 g/dL (6.4-8.2) 11/02/20 10:20 Albumin 2.3 g/dL (3.4-5.0) L 11/02/20 10:20 Ur Random Creatinine 46.39 mg/dL 11/02/20 09:50 U Random Total Protein 31.2 mg/dL 11/02/20 09:50 U [place] Prot/Creat Ratio 0.67 11/02/20 09:50 COVID-19 Source Nasal/Nares 11/01/20 12:40 SARS-CoV-2 (PCR) Negative (Negative) 11/01/20 12:40 Subjective Interval history since last seen: Double cervical balloon placed yesterday at ~ 15 00. Pt was observed overnight. BP stable. Minimal headache. Balloon removed without difficulty this morning. SVE 3/80/-1. Will begin Oxytocin augmentation. Interventions Augmentation (2) , Pitocin rate (mU/min): 2 will begin Oxytocin infusion this am. Follow labor progress. ./ Induction Indication: Chronic Hypertension , Type of Induction: [place] Bulb , Induction Note: 16hrs in place prior to removal this am. . Results Hemoglobin/Hematocrit: Hgb 10.9 g/dL (11.2-15.7) L 11/02/20 10:20 Hct 34.2 % (36.0-46.0) L 11/02/20 10:20 Abnormal Lab Findings: Abnormal Labs 11/02/20 11/02/20 11/02/20 10:20 10:20 10:20 RBC 3.76 L Hgb 10.9 L Hct 34.2 L MCHC 31.9 L MPV 11.5 H Uric Acid 6.4 H Alkaline Phosphatase 139 H Albumin 2.3 L
[2020-11-03] MEDS: Oxytocin/Normal Saline 30 UNIT/500 ML BAG 2 UNITS IV (08:13)
--- NOTE | 2020-11-03 10:03 | PGE_ITS ---
Date of service: 11/03/20 Time of Service: 10:03 Informed Consent Informed Consent: Augmentation of Labor (verbal) Fetus A Assessment Note: Category 1 tracing. Contractions every 2 to 4 minutes. Palpate moderate. Cervical exam deferred at this point. Assessment and Plan Assessment and plan (1) Encounter for induction of labor: Status: Acute Assessment and plan: Patient is status post Cook catheter for cervical ripening. Dose of augmentation is begun. Patient would anticipate epidural for pain control when contractions are more trouble. We will artificial rupture membranes when indicated. Anticipate normal spontaneous vaginal delivery. Otherwise at this point, blood pressure stable. Category 1 tracing. (2) Pre-eclampsia affecting , antepartum: Status: Acute (3) Glucose intolerance of : Status: Acute Objective Abnormal lab results 11/02/20 11/02/20 11/02/20 Range/Units 10:20 10:20 10:20 RBC 3.76 L (3.93-5.22) 10^6/uL Hgb 10.9 L (11.2-15.7) g/dL Hct 34.2 L (36.0-46.0) % MCHC 31.9 L (32.0-36.0) % MPV 11.5 H (8.0-11.0) fL Uric Acid 6.4 H (2.6-6.0) mg/dL Alkaline Phosphatase 139 H (46-116) U/L Albumin 2.3 L (3.4-5.0) g/dL Temp Pulse Resp BP Pulse Ox 97.7 F 92 H 16 131/76 99 11/03/20 07:41 11/03/20 07:41 11/03/20 07:41 11/03/20 07:41 11/03/20 04:45 Laboratory Results WBC 8.36 10^3/uL (4.4-10.8) 11/02/20 10:20 RBC 3.76 10^6/uL (3.93-5.22) L 11/02/20 10:20 Hgb 10.9 g/dL (11.2-15.7) L 11/02/20 10:20 Hct 34.2 % (36.0-46.0) L 11/02/20 10:20 MCV 91.0 fL (80-95) 11/02/20 10:20 MCH 29.0 pg (27.0-33.0) 11/02/20 10:20 MCHC 31.9 % (32.0-36.0) L 11/02/20 10:20 RDW 13.2 % (11.7-14.6) 11/02/20 10:20 Plt Count 229 10^3/uL (130-400) 11/02/20 10:20 MPV 11.5 fL (8.0-11.0) H 11/02/20 10:20 Sodium 136 mmol/L (136-145) 11/02/20 10:20 Potassium 4.2 mmol/L (3.5-5.1) 11/02/20 10:20 Chloride 104 mmol/L (98-107) 11/02/20 10:20 Carbon Dioxide 21.6 mmol/L (21.0-32.0) 11/02/20 10:20 Anion Gap 10.4 mmol/L (3-11) 11/02/20 10:20 BUN 10 mg/dL (7-18) 11/02/20 10:20 Creatinine 0.8 mg/dL (0.55-1.02) 11/02/20 10:20 Estimated GFR/1.73 m2 >= 60.00 (mL/min/1.73m2) 11/02/20 10:20 Glucose 101 mg/dL (74-106) 11/02/20 10:20 Uric Acid 6.4 mg/dL (2.6-6.0) H 11/02/20 10:20 Calcium 8.5 mg/dL (8.5-10.1) 11/02/20 10:20 Total Bilirubin 0.3 mg/dL (0.2-1.0) 11/02/20 10:20 AST 21 U/L (15-37) 11/02/20 10:20 ALT 21 U/L (14-59) 11/02/20 10:20 Alkaline Phosphatase 139 U/L (46-116) H 11/02/20 10:20 Total Protein 6.6 g/dL (6.4-8.2) 11/02/20 10:20 Albumin 2.3 g/dL (3.4-5.0) L 11/02/20 10:20 Ur Random Creatinine 46.39 mg/dL 11/02/20 09:50 U Random Total Protein 31.2 mg/dL 11/02/20 09:50 U [place] Prot/Creat Ratio 0.67 11/02/20 09:50 COVID-19 Source Nasal/Nares 11/01/20 12:40 SARS-CoV-2 (PCR) Negative (Negative) 11/01/20 12:40 Subjective Interval history since last seen: Patient seen and examined this morning. Her Pitocin has been started. She is feeling contractions more frequently. Some are intense, some are mild. She has been ambulatory only to the bathroom. Her plan is for epidural for pain control when her contractions become more intense. At that point we will check her cervix prior to placement of epidural. We did discuss possibility of artificial rupture of membranes. Otherwise she is doing well. Results Hemoglobin/Hematocrit: Hgb 10.9 g/dL (11.2-15.7) L 11/02/20 10:20 Hct 34.2 % (36.0-46.0) L 11/02/20 10:20 Abnormal Lab Findings: Abnormal Labs 11/02/20 11/02/20 11/02/20 10:20 10:20 10:20 RBC 3.76 L Hgb 10.9 L Hct 34.2 L MCHC 31.9 L MPV 11.5 H Uric Acid 6.4 H Alkaline Phosphatase 139 H Albumin 2.3 L
--- NOTE | 2020-11-03 12:17 | W.ANESPRE ---
General Info Date of Service Date Performed: 11/03/20 Height: 5 ft 1 in Weight: 86.636 kg Body Mass Index (BMI): 36.1 Meds Allergies and Home Medications Allergies Allergy/AdvReac Type Severity Reaction Status Date / Time No Known Drug Allergies Allergy Verified 11/02/20 12:34 Home Medication Medication Instructions Recorded prenat.vits,marcial,[id number] 1 tab PO DAILY 03/15/20 acetaminophen 325 mg capsule 650 mg PO ONCE PRN cap 04/18/20 aspirin 81 mg tablet,delayed 81 mg PO DAILY #45 tab 04/18/20 release pantoprazole 40 mg tablet,delayed 40 mg PO DAILY #60 tab 07/21/20 release Current Visit Medications: Current Medications Generic Name Dose Route Start Last Admin Trade Name Freq PRN Reason Stop Dose Admin Ringer's Solution 1,000 mls @ 125 mls/hr 11/03/20 06:00 IV INFUSION ROSE Sodium Chloride 500 mls @ 0 mls/hr 11/02/20 11:32 Saline 500ml Bag IV PRN PRN As Directed Ringer's Solution 1,000 mls @ 125 mls/hr 11/03/20 07:45 IV INFUSION ROSE Sodium Chloride 500 mls @ 0 mls/hr 11/03/20 07:39 Saline 500ml Bag IV PRN PRN As Directed Oxytocin/Sodium Chloride 30 unit in 500 mls @ 2 mls/hr 11/03/20 07:45 11/03/20 11:31 Pitocin/Normal Saline IV 8 milliunits/min INFUSION ROSE 8 mls/hr Titration Protocol 2 MILLIUNITS/MIN IV Miscellaneous Supplies 1 each 11/02/20 11:45 Iv Access IV DIRECTED ROSE IV Miscellaneous Supplies 1 each 11/03/20 07:45 Iv Access IV DIRECTED ROSE Sodium Chloride 0 ml 11/02/20 11:32 Normal Saline Flush 10 Ml Syr IVP PRN PRN Sodium Chloride 0 ml 11/02/20 11:32 Normal Saline Flush 10 Ml Syr IVP PRN PRN Sodium Chloride 0 ml 11/03/20 07:39 Normal Saline Flush 10 Ml Syr IVP PRN PRN PFSH Active Problems Active Problems: Problem Status Onset Code Encounter for induction of labor Z34.90 Pre-eclampsia affecting , antepartum O14.90 Glucose intolerance of O99.810 Encounter for supervision of other normal , third trimester Z34.83 Marginal insertion of umbilical cord affecting management of mother in second trimester O43.192 GERD (gastroesophageal reflux disease) K21.9 Rubella non-immune status, antepartum O99.891, Z28.3 Maternal varicella, non-immune O09.899, Z28.3 Rh negative state in antepartum period O26.899, Z67.91 Pap smear abnormality of cervix R87.619 Smoker F17.200 History of frequent headaches Left flank pain R10.9 Z34.90 Tobacco use Z72.0 Right knee pain M25.561 Medical History Medical History Ectopic Encounter for supervision of other normal , third trimester Fibrocystic disease of breast (10/01/11) GERD (gastroesophageal reflux disease) Glucose intolerance of Left leg pain (05/21/17) dysthesia over L lateral thigh developed in second trimester of current . Will refer to physical therapy for evaluation and treatment. Marginal insertion of umbilical cord affecting management of mother in second trimester Smoker Surgical History Surgical History Other ectopic with intrauterine [place] teeth extracted Tobacco Smoking/Tobacco Use Status: Former Tobacco Use Passive smoking exposure: Yes Alcohol Alcohol Intake: current Alcohol intake frequency: a few times a week Substance Use Substance use: Never Substance use type: does not use Prental History History 6 Para 2 Hx # Term Pregnancies 2 Multiple births Hx # Pregnancies Ectopic pregnancies 1 AB induced 2 Hx Number of Living Children 2 AB spontaneous 1 Past Pregnancies Del. Date GA/Weeks # Outcome Route Wgt Sex Labor Lgth Anesthesia Location Prov [facility] 06/02/09 40 No Successful vaginal 3458.642 g Male [address] Fernandez 08/29/17 38 No Successful vaginal 3061.748 g Male [address] Delivery Date: 06/02/09 IOL at term due to maternal discomfort. Lauryn Gutiérrez Delivery Date: 08/29/17 Preeclampsia, proteinuria IOL at 38 weeks. Lauryn Gutiérrez Vital Signs and Lab Results Vital Signs Most Recent Vital Signs in EMR: Most Recent Vital Signs Temp Pulse Resp BP Pulse Ox 36.5 C 75 16 130/80 99 11/03/20 07:41 11/03/20 11:15 11/03/20 07:41 11/03/20 11:11/03/20 04:45 Lab Results Result Diagrams: 11/02/20 10:11/02/20 10:20 Blood Type / Crossmatch: No Data to Display Complete Blood Count: White Blood Count 8.36 10^3/uL (4.4-10.8) 11/02/20 10:20 11/02/20 Red Blood Count 3.76 10^6/uL (3.93-5.22) L 11/02/20 10:20 11/02/20 Hemoglobin 10.9 g/dL (11.2-15.7) L 11/02/20 10:11/02/20 Hematocrit 34.2 % (36.0-46.0) L 11/02/20 10:11/02/20 Platelet Count 229 10^3/uL (130-400) 11/02/20 10:20 11/02/20 Complete Metabolic Panel: Sodium Level 136 mmol/L (136-145) 11/02/20 10:20 11/02/20 Potassium Level 4.2 mmol/L (3.5-5.1) 11/02/20 10:11/02/20 Chloride Level 104 mmol/L (98-107) 11/02/20 10:11/02/20 Carbon Dioxide Level 21.6 mmol/L (21.0-32.0) 11/02/20 10:11/02/20 Blood Urea Nitrogen 10 mg/dL (7-18) 11/02/20 10:11/02/20 Creatinine 0.8 mg/dL (0.55-1.02) 11/02/20 10:11/02/20 Estimated GFR/1.73 m2 >= 60.00 (mL/min/1.73m2) 11/02/20 10:11/02/20 Calcium Level 8.5 mg/dL (8.5-10.1) 11/02/20 10:11/02/20 Albumin 2.3 g/dL (3.4-5.0) L 11/02/20 10:11/02/20 Glucose Level 101 mg/dL (74-106) 11/02/20 10:11/02/20 Liver Function Panel: Alanine Aminotransferase (ALT/SGPT) 21 U/L (14-59) 11/02/20 10:20 11/02/20 Aspartate Amino Transf (AST/SGOT) 21 U/L (15-37) 11/02/20 10:20 11/02/20 Coagulation Panel: No Data to Display Cardiac Panel: No Data to Display Arterial Blood Gas: No Data to Display Venous Blood Gas: No Data to Display Pancreas Panel: No Data to Display Thyroid Panel: No Data to Display Infectious Disease: Coronavirus (COVID-19)(PCR) Negative (Negative) 11/01/20 12:40 11/01/20 Coronavirus 2019 Source Nasal/Nares 11/01/20 12:40 11/01/20 Blood Cultures: No Data to Display Toxicology Panel: Urine Amphetamines Screen Negative (Negative) 10/17/20 14:50 10/17/20 Urine Benzodiazepines Screen Negative (Negative) 10/17/20 14:50 10/17/20 Urine Barbiturates Screen Negative (Negative) 10/17/20 14:50 10/17/20 Urine Cocaine Screen Negative (Negative) 10/17/20 14:50 10/17/20 Urine Methadone Screen Negative (Negative) 10/17/20 14:50 10/17/20 Urine Opiates Screen Negative (Negative) 10/17/20 14:50 10/17/20 Ur Tricyclic Antidepressants Screen Negative (Negative) 10/17/20 14:50 10/17/20 Ur Tetrahydrocannabinol (THC) Scrn Negative (Negative) 10/17/20 14:50 10/17/20 Panel: No Data to Display Anesthesia Assessment and Plan Anesthesia History Personal History: No History of Anesthesia Complications Family History: No Family History of Anesthesia Complications Exercise Tolerance Exercise Tolerance: Metabolic Equivalents>4 Cardiac & Pulmonary Exam Cardiac Exam: Normal S1/S2 Heart Sounds Pulmonary Exam: Clear Bilateral Breath Sounds Airway Exam Known Difficult Airway: No Mallampati Class: 2 Mouth Opening: Normal (> 3cm) Thyromental Distance: Greater than 3 cm Neck Range of Motion: Full ROM Neck Circumference: Normal Teeth Condition: Normal Dentition ASA Classification ASA Score: ASA 2 Emergency Case?: No NPO Status NPO Status: Full Stomach () Status Status: Confirmed Anesthesia Plan Resuscitation Status: Full Code Anesthesia Technique: Epidural Anesthesia Airway Planned: Natural Airway Pain Management: Epidural Monitors Used: Standard Monitors
--- NOTE | 2020-11-03 13:00 | W.ANESNEU ---
Epidural/Spinal Catheter Date Performed: 11/03/20 Procedure Start: 12:36 Procedure Stop: 12:58 Requesting Provider: Laura Tiwari Procedure Location: Obstetrics Reason Performed: Labor Epidural Standard Monitors Applied: ECG, Blood Pressure, SpO2 and See EMR for corresponding vital signs Patient Position: Sitting Sedation Given (Indicate Dose Given): No Sedation given Patient Mental Status: Awake Sterility: Hand Hygiene, Surgical Cap, Surgical Mask, Sterile Gloves, Sterile Drape/Sheet and Chlorhexidine Procedure Location: L3-L4 Interspace Epidural Needle: Tuohy 18 Gauge Needle Length: 3.5 Inch Needle Approach: Midline Epidural Procedure: Skin Prepped, Sterile Drape Placed, 1% Lidocaine to skin and subcutaneous tissue with 25G needle, Tuohy Needle placed, ABDIRASHID to Saline Used, Epidural Catheter Placed, Negative Heme, Negative CSF Flow and Tuohy Needle Removed Catheter Placed?: Catheter Placed Test Dose (Indicate Dose Given): 3ml 1.5% Lidocaine with 1:200K Epinephrine Given and Negative Test Dose Loss of Resistance Depth (cm): 7 Catheter depth at skin (cm): 14 Dressing: Sorbaview Dressing Placed, Mastisol Used and Dressing reinforced with Tape Epidural Provider Bolus (Indicate Dose Given): Total bolus dose given in 3-5 ml divided doses and Total Bupivacaine 0.25% Given (ml) Dose:: 6 ml Additives (Indicate Dose Given ): Fentanyl PF Dose:: 100 mcg Infusion Medication: Medication Infusion Began Medication Infusion: Ropivacaine 0.1% with Fentanyl 2mcg/ml Maintenance Infusion Rate (ml/hour): 10 PCEA Bolus Dose (ml): 5 Post Procedure Pain score (0-10): 0 Block Level: T6 Paresthesia: None Ultrasound: Not Used Number of Attempts (See previous attempts in note section): 1 Procedure Tolerated: No Complications Procedure Outcome: Successful Procedure Comment:: Test dose at 1241, Bolus dose at 1246. Infusion initiated at 1256, see order set. Patient tolerated very well pain level 7/10 pre-procedure, 0/10 post. VSS Performed By: Abigail Burgess
[2020-11-03] MEDS: FentaNYL/ROPIvacaine 2 mcg/ml and 0.1% 200 ML CADD Cassette EP (13:03)
--- NOTE | 2020-11-03 14:22 | PGE_ITS ---
Date of service: 11/03/20 Time of Service: 14:22 Informed Consent Informed Consent: Augmentation of Labor (verbal) Pelvic Exam Dilation: 7 Effacement (%): 50 station: 0 Position: MARTHA Cervix Position: anterior Consistency: soft Vaginal Exam Presentation: Vertex Contractions Monitor Mode: Palpation Contraction Frequency(min): 3-5 Contraction Duration(sec): 60-90 Intensity: Moderate/Strong Fetus A Variability: Moderate (6-25 BPM) Categories: Category I FHR Rhythm: Regular Decelerations: Prolonged (Episode of bradycardia for 14 minutes now resolved) Amniotic Membrane Status: Ruptured Rupture Method: Artifical Amniotic Fluid: Clear Amount: Copious. No cord palpated Assessment and Plan Assessment and plan (1) Encounter for induction of labor: Status: Acute Assessment and plan: At this point, patient with spontaneous labor pattern. Pitocin has been discontinued. Artificial rupture of membranes for clear fluid with scalp electrode placed. Episode of bradycardia now resolved. Category 1 strip. Moderate variability. We will continue to monitor closely to assess status. Risk benefits and alternatives of operative delivery via section have been explained to the patient and her . They do understand, that if the need arose for an emergent section, she may require general anesthesia. (2) bradycardia during labor: Status: Acute Assessment and plan: Resolved Objective Temp Pulse Resp BP Pulse Ox 97.7 F 69 16 133/71 99 11/03/20 07:41 11/03/20 14:18 11/03/20 07:41 11/03/20 13:04 11/03/20 14:18 Laboratory Results WBC 8.36 10^3/uL (4.4-10.8) 11/02/20 10:20 RBC 3.76 10^6/uL (3.93-5.22) L 11/02/20 10:20 Hgb 10.9 g/dL (11.2-15.7) L 11/02/20 10:20 Hct 34.2 % (36.0-46.0) L 11/02/20 10:20 MCV 91.0 fL (80-95) 11/02/20 10:20 MCH 29.0 pg (27.0-33.0) 11/02/20 10:20 MCHC 31.9 % (32.0-36.0) L 11/02/20 10:20 RDW 13.2 % (11.7-14.6) 11/02/20 10:20 Plt Count 229 10^3/uL (130-400) 11/02/20 10:20 MPV 11.5 fL (8.0-11.0) H 11/02/20 10:20 Sodium 136 mmol/L (136-145) 11/02/20 10:20 Potassium 4.2 mmol/L (3.5-5.1) 11/02/20 10:20 Chloride 104 mmol/L (98-107) 11/02/20 10:20 Carbon Dioxide 21.6 mmol/L (21.0-32.0) 11/02/20 10:20 Anion Gap 10.4 mmol/L (3-11) 11/02/20 10:20 BUN 10 mg/dL (7-18) 11/02/20 10:20 Creatinine 0.8 mg/dL (0.55-1.02) 11/02/20 10:20 Estimated GFR/1.73 m2 >= 60.00 (mL/min/1.73m2) 11/02/20 10:20 Glucose 101 mg/dL (74-106) 11/02/20 10:20 Uric Acid 6.4 mg/dL (2.6-6.0) H 11/02/20 10:20 Calcium 8.5 mg/dL (8.5-10.1) 11/02/20 10:20 Total Bilirubin 0.3 mg/dL (0.2-1.0) 11/02/20 10:20 AST 21 U/L (15-37) 11/02/20 10:20 ALT 21 U/L (14-59) 11/02/20 10:20 Alkaline Phosphatase 139 U/L (46-116) H 11/02/20 10:20 Total Protein 6.6 g/dL (6.4-8.2) 11/02/20 10:20 Albumin 2.3 g/dL (3.4-5.0) L 11/02/20 10:20 Ur Random Creatinine 46.39 mg/dL 11/02/20 09:50 U Random Total Protein 31.2 mg/dL 11/02/20 09:50 U [place] Prot/Creat Ratio 0.67 09/15/21 09:50 COVID-19 Source Nasal/Nares 11/01/20 12:40 SARS-CoV-2 (PCR) Negative (Negative) 11/01/20 12:40 Subjective Interval history since last seen: While watching heart rate tracing, there is a subtle decrease in baseline heart rate from 140s to 120s. Upon my arrival to the center, heart tones were in the process of deceleration to the 90s. Patient was feeling reasonably well though had just have an episode of nausea. Cervical exam performed, cervix found to be approximately 6 to 7 cm 50% effaced with vertex applied to the cervix. With aggressive scalp stimulation, and position change, heart tones were still in the 90s. At this point Pitocin was discontinued, 500 cc fluid bolus placed, O2 at 100% by mask placed. Artificial rupture of membranes for copious clear fluid performed. There was no evidence of cord prolapse. scalp electrode was placed. Patient was repositioned from right lateral to left lateral again to right lateral and again left lateral. heart rate tracing did finally resume with elevation to the 120s. Total time for episode of bradycardia was 14 minutes. heart rate tracing is now 140s, moderate variability. Without Pitocin augmentation, contractions are every 3 to 5 minutes and palpate strongly. During the episode of bradycardia, staff notified OR for opening of the section room, pediatrics notified in case of need for emergent C- section. The possibility of emergent with risk benefits and alternatives discussed with both patient and her . They do understand that if need for emergent were to arise with nonreassuring status, potential for general anesthesia is there. Patient is currently comfortable with her Adderall. She feels no significant pelvic pressure. Baby is moving and active. Return of normal category 1 strip currently O2 saturation 99% on room air. Maternal heart rate is in the 70s. Results Hemoglobin/Hematocrit: Hgb 10.9 g/dL (11.2-15.7) L 11/02/20 10:20 Hct 34.2 % (36.0-46.0) L 11/02/20 10:20 Abnormal Lab Findings: Abnormal Labs 11/02/20 11/02/20 11/02/20 10:20 10:20 10:20 RBC 3.76 L Hgb 10.9 L Hct 34.2 L MCHC 31.9 L MPV 11.5 H Uric Acid 6.4 H Alkaline Phosphatase 139 H Albumin 2.3 L
--- NOTE | 2020-11-03 16:03 | OBVDS_ITS ---
Date of service: 11/03/20 Time of Service: 16:03 OB Labor/ Delivery Information Baby A Delivery Delivery Method: Spontaneaous Presentation: Cephalic Cephalic Position: Vertex Vertex Position: Right Occipital Anterior Cord Description-Baby A: 3 Vessels Amniotic Fluid: Clear Estimated Blood Loss: 50 Delivery Outcome: Liveborn Transferred: Remains with Mother Note: Patient is a 35-year-old female at 37 and 3 weeks gestation who had labor induction due to gestational hypertension, preeclampsia with headache. She had cervical ripening initially with a Cook catheter Gannon balloon. She had Pitocin augmentation of labor. During the process of Pitocin augmentation of labor, with rapid progression of labor, she had a 14-minute bradycardia episode. At that point Pitocin had been discontinued. Position changes, IV fluid bolus, O2 was placed, artificial rupture of membranes for clear fluid was undertaken and scalp lead was placed. She had returned to baseline of approximately 140 with moderate variability. With Pitocin off, patient continued in normal spontaneous labor to the point that she was completely dilated. She had an epidural for pain control though did feel the urge to push. At that point, she was checked and found to be clearly dilated and +2 station in the right occiput anterior position. With good maternal effort she pushed ring intact perineum. There is no evidence of cord. Shoulders followed with ease. Three- vessel cord was noted clamped x2 after cessation of pulsation and cut. Baby had been skin to skin with mom. Placenta delivered spontaneously and was found to be intact. Marginal cord insertion was noted with a succenturiate lobe. There is no evidence of of abruption noted. Cord blood gases and cord blood sample have been both obtained. She did receive Pitocin for uterine tonicity after delivery. Both mom and baby are in stable condition after spontaneous vaginal delivery Providers Doctor: Laura Tiwari Beater Engineer: Abigail Burgess Nurse: Haylee Carrillo Nurse: Lexie Fernandez Labor/Delivery Information Number of Babies in Womb: 1 Steroids Given: None Reason Steroids Not Administered: N/A Group Beta Strep: Negative Antibiotics Administered: No Maternal Complications: None Shoulder Dystocia: No Stages of Labor Onset of Labor Date: 11/03/20 Onset of Labor Time: 07:30 Complete Dilatation Date: 11/03/20 Complete Dilatation Time: 15:32 Labor - Stage 1 Duration: 0 minutes ROM Baby A: 11/03/20 ROM Baby A: 13:43 ROM Total Time- Baby A: [id number] Delivery Date-Baby A: 11/03/20 Infant Delivery Time-Baby A: 15:43 Labor Stage 2 Duration: 11 minutes Placenta Delivery Date-Baby A: 11/03/20 Placenta Delivery Time-Baby A: 15:48 Labor-Stage 3 Duration: 5 minutes Total Length of Labor-Baby A: 8 hours and 13 minutes Placenta Status: Delivered Baby A Gender: Male Gestational Status: Early Term (37-38.6 wks) Gestational Age in Weeks/Days: 37 Weeks and 5 Days Score-1 Minute Interval(Baby A) Heart Rate-1 minute: 100 BPM or Greater Respiratory Effort- 1 minute: Spontaneous/Strong Cry Muscle Tone-1 minute: Active Movement Reflex Response-1 minute: Prompt Response Color-1 minute: Pallor or Cyanosis Total Score-1 minute: 8 Score-5 Minute Interval(Baby A) Heart Rate- 5 minute: 100 BPM or Greater Respiratory Effort-5 minute: Spontaneous/Strong Cry Muscle Tone-5 minute: Active Movement Reflex Response-5 minute: Prompt Response Color-5 minute: Bluish Hands or Feet Total Score- 5 minute: 9
[2020-11-03] MEDS: Ibuprofen 600 MG TAB PO (17:57)
[2020-11-03] MEDS: Acetaminophen 325 MG TAB 650 MG PO (17:57)
[2020-11-04] MEDS: Acetaminophen 325 MG TAB 650 MG PO ×5 (00:09→23:13)
[2020-11-04] MEDS: Ibuprofen 600 MG TAB PO ×4 (00:09→18:03)
[2020-11-04 00:15] VITALS: BP 119/74; PULSE 75; RESP 18; TEMP 36.6
[2020-11-04 06:05] VITALS: BP 139/80; PULSE 75; RESP 18
[2020-11-04 08:00] VITALS: BP 136/88; PULSE 75; RESP 14; TEMP 36.9
--- NOTE | 2020-11-04 08:56 | W.PM.OBPNV1 ---
Date of service: 11/04/20 Time of Service: 08:56 Assessment and Plan Assessment and plan (1) Normal spontaneous vaginal delivery: Status: Acute Assessment and plan: Patient day #1 status post normal spontaneous vaginal delivery after labor induction at 37 weeks and 2 days due to preeclampsia in . had gated by elevated blood glucose and large cord insertion. She had labor induction with cervical ripening via catheter followed by Pitocin augmentation and artificial rupture of membranes for clear fluid. Labor was complicated by 14-minute bradycardia episode, which resolved with appropriate maneuvers. She went on to a normal spontaneous vaginal delivery of a viable male infant. Mom is doing well today baby is somewhat jittery and having some nursing difficulties. We will delay his circumcision at this point. I would anticipate discharge home for mom in 24 hours. (2) bradycardia during labor: Status: Acute (3) Rh negative state in antepartum period: Status: Acute (4) Pre-eclampsia affecting , antepartum: Status: Acute Subjective Subjective Interval history: Patient seen and examined this morning. Doing well. No complaints or issues at this time. Working on breast-feeding. Minimal pain. Normal lochia Patient comments: Pain well controlled and Tolerating diet baby status: Doing well, Nursing well and Strong Bonding Observed feeding status: Exclusively breast feeding Exam Physical Exam Vital signs: Temp Pulse Resp BP Pulse Ox 97.8 F 75 18 139/80 99 11/04/20 00:15 11/04/20 06:05 11/04/20 06:05 11/04/20 06:05 11/03/20 18:44 Constitutional Constitutional: no acute distress Neck Exam Neck Exam: Normal Respiratory Exam Respiratory Exam: Normal Cardiovascular Exam Cardiovascular Exam: Normal Abdominal Exam Comments: Soft, nontender Fundal Exam Fundus: Below Umbilicus and Firm Extremities Exam Extremity Exam: negative Calf Tenderness and Edema Neurological Exam Neurological Exam: Normal Psychiatric Exam Psychiatric Exam: Normal Results Hemoglobin/Hematocrit: Hgb 10.9 g/dL (11.2-15.7) L 11/02/20 10:20 Hct 34.2 % (36.0-46.0) L 11/02/20 10:20 Abnormal Lab Findings: Abnormal Labs 11/02/20 11/02/20 11/02/20 10:20 10:20 10:20 RBC 3.76 L Hgb 10.9 L Hct 34.2 L MCHC 31.9 L MPV 11.5 H Uric Acid 6.4 H Alkaline Phosphatase 139 H Albumin 2.3 L
--- NOTE | 2020-11-04 10:08 | W.ANESPOSTOP ---
Postoperative Evaluation Date, Time and Location Date Performed: 11/04/20 Time Performed: 10:23 Patient Location: Obstetrics (303) Vital Signs Most Recent Imported Vital Signs: Most Recent Vital Signs Temp Pulse Resp BP Pulse Ox 36.6 C 75 18 139/80 99 11/04/20 00:15 11/04/20 06:05 11/04/20 06:05 11/04/20 06:05 11/03/20 18:44 Pain Score Most Recent Pain Score: Most Recent Pain Score Pain Level [Abdomen] 3 11/04/20 00:15 Pain Level 3 11/04/20 06:19 Assessment Mental Status: Awake (Alert & Oriented to Patient Baseline) Airway and Respiratory Function: Patent airway with normal (patient baseline) respiratory exam Cardiovascular Function: Hemodynamically Stable Hydration Status: Adequately Hydrated Nausea & Vomiting: No Nausea or Vomiting Pain: Pt. Denies Any Pain Peripheral Nerve Block: Other (Epidural catheter removed intact per RN. Patient comfortable with full CMS. Denies questions )
[2020-11-04 16:00] VITALS: BP 132/83; PULSE 75; RESP 16; TEMP 37.1
[2020-11-04 23:49] VITALS: BP 123/81; PULSE 70; RESP 16; TEMP 36.5; O2SAT 97
[2020-11-05 08:00] VITALS: BP 135/87; PULSE 76; RESP 16; TEMP 36.7; O2SAT 97
--- NOTE | 2020-11-05 09:21 | DSE_ITS ---
Date of service: 11/06/20 Time of Service: 09:45 DS: Diagnosis Discharge Diagnosis (1) Normal spontaneous vaginal delivery: Status: Acute (2) bradycardia during labor: Status: Acute (3) Rh negative state in antepartum period: Status: Acute (4) Pre-eclampsia affecting , antepartum: Status: Acute (5) Rubella nonimmune status, delivered, current hospitalization: Status: Acute (6) Maternal varicella, non-immune: Status: Acute Discharge Plan Discharge Details Reason For Visit: IUP at Term, Headache Admit Date/Time: 11/02/20 11:32 Admit Provider: Chanel Lane Attending Provider: Chanel Lane Primary Care Provider: Prachi Lewis Hospital Course Hospital Course: Patient discharged to home on PPD 3 after spontaneous vaginal delivery at 37 weeks and 5 days. She was induced secondary to preeclampsia in . was complicated by elevated blood glucose and marginal cord insertion. She had labor induction with cervical ripening via catheter followed by Pitocin augmentation and artificial rupture of membranes. Labor was complicated by 14- minute bradycardia episode, which resolved with appropriate maneuvers. She went on to a normal spontaneous vaginal delivery of a viable male infant who will be named Geovanni. WT [id number]. Apgars 8/9. Pt's continued to have elevated bilirubin levels but did not require phototherapy. Discharge to home yesterday was postponed secondary to uncertainty if was to remain hospitalized. Pt's BP's remained elevated in 150/80's without other indications of preeclampsia. Prior to discharge will receive Varicella, MMR for serum non- immune status, despite having had vaccinations in past. Will also receive Rhogam for Rh neg status. Pt plans to use Progestin only OCP will partner is in process of arranging vasectomy Home Meds and New Rx's Prescriptions: No Action prenat.vits,marcial,[id number] Tablet 1 tab PO DAILY RF: 0 acetaminophen [Tylenol] 325 mg capsule 650 mg PO ONCE PRNRF: 0 aspirin [Adult Low Dose Aspirin] 81 mg tablet,delayed release (DR/EC) 81 mg PO DAILY Qty: 45 RF: 7 pantoprazole [Protonix] 40 mg tablet,delayed release (DR/EC) 40 mg PO DAILY Qty: 60 RF: 4 Discharge Instructions Additional Instructions: You have been given an appointment with Dr. Tiwari in the [facility] in 2 weeks for a follow up visit. If you have any concerns or questions prior to that appointment please call the office at [phone]. Stand Alone Forms: Instructions, Post Vaginal Deliver Activity:: Activity as Tolerated Activity:: Activity as Tolerated Equipment/Supplies:: No Equipment Needed Diet:: As Tolerated Procedure Procedures: Cervical Ripening OB:DS Summary Summary Vaginal Delivery Method: Spontaneaous Episiotomy Description: None Laceration Description: None Laceration Extension: N/A Contraception Discussed Contraception Discussed: Yes (pending partner's vasectomy pt will use progestin only contraceptive) Contraceptive Plan: Control Pill/Patch (while ) and Vasectomy, [place] Gender-Baby A: Male weight: 7 lb 1.229 oz Status at Discharge Functional status at discharge: independent ambulation Overall status at discharge: patient is progressing back to baseline Mental Status: mental status grossly normal Speech and Movement: speech and movement normal Mood: congruent mood Affect: normal affect Exam Physical Exam Vital signs: Temp Pulse Resp BP Pulse Ox 97.7 F 70 16 123/81 97 11/04/20 23:49 11/04/20 23:49 11/04/20 23:49 11/04/20 23:49 11/04/20 23:49 Vital Signs Reviewed: Yes Narrative: BP has remained in 150/80's during night. No H/A, no visual changes. Managed expectantly Constitutional Constitutional: no acute distress Neck Exam Neck Exam: Normal Respiratory Exam Respiratory Exam: Normal Cardiovascular Exam Cardiovascular Exam: Normal Abdominal Exam Abdomen: Other (non-tender) Fundal Exam Fundus: Below Umbilicus and Firm Rectal Exam Rectal Exam: Not Done Extremities Exam Extremity Exam: Edema (1+ non-pitting edema) Back/Spine/Pelvis Exam Back Exam: Not Done Skin Exam Skin Exam: Normal Neurological Exam Neurological Exam: Not Done Psychiatric Exam Psychiatric Exam: Normal [facility] Medical History Ectopic Fibrocystic disease of breast (10/01/11) GERD (gastroesophageal reflux disease) Glucose intolerance of Left leg pain (05/21/17) dysthesia over L lateral thigh developed in second trimester of current . Will refer to physical therapy for evaluation and treatment. Marginal insertion of umbilical cord affecting management of mother in second trimester Normal spontaneous vaginal delivery Smoker Surgical History Other ectopic with intrauterine [place] teeth extracted Family History Mother Diabetes Paternal Grandmother Breast cancer Social History Smoking/Tobacco Use Status: Former Tobacco Use Smoking risk assessment performed?: Yes Alcohol Intake: current Alcohol Intake frequency: a few times a week Drug use: Never Substance use type: does not use Number of Children: 2 current occupation: [employer] Current gender identity: female What type of physical activity do you participate in: none Seatbelt use: always Do you feel safe at home: Yes Do you feel safe in your relationship?: Yes Female Reproductive History Menstrual control method: progestin IUCD (LOT=[id number] EXP=03/2020) History History 6 Para 3 Hx # Term Pregnancies 3 Multiple births Hx # Pregnancies Ectopic pregnancies 1 AB induced 2 Hx Number of Living Children 3 AB spontaneous 1 Past Pregnancies Del. Date GA/Weeks # Outcome Route Wgt Sex Labor Lgth Anesthes ia Location Prov [facility] 06/02/09 40 No Successful vaginal 7 lb 10 oz Male [address] Fernandez 08/29/17 38 No Successful vaginal 6 lb 12 oz Male [address] Delivery Date: 06/02/09 IOL at term due to maternal discomfort. Lauryn Gutiérrez Delivery Date: 08/29/17 Preeclampsia, proteinuria IOL at 38 weeks. Lauryn Gutiérrez DS: Data Vitals/I&O Vitals and I&O: Vital Signs Temperature 97.7 F 11/04/20 23:49 Temperature Source Axillary 11/02/20 14:53 Pulse 70 11/04/20 23:49 Pulse Rhythm Regular 11/04/20 08:00 Respiratory Rate 16 11/04/20 23:49 Respiratory Depth Normal 11/04/20 23:49 Blood Pressure 123/81 11/04/20 23:49 Blood Pressure Mean 95 11/04/20 23:49 Pulse Oximetry 97 11/04/20 23:49 Oxygen Delivery Method Room Air 11/02/20 14:53 Oxygen Flow Rate 0 11/02/20 14:53 Pain Level 3 11/04/20 23:13 Comment 11/04/20 14:00 Intake & Output 11/04/20 11/04/20 11/05/20 11:59 23:59 11:59 Intake Total 500 / 1050 550 / 1050 Output Total 1500 / 1500 Balance -1000 / -450 550 / -450 Intake: Oral 500 / 1050 550 / 1050 Output: Urine 1500 / 1500
[2020-11-05] MEDS: Acetaminophen 325 MG TAB 650 MG PO (15:33)
[2020-11-05] MEDS: Docusate Sodium 100 MG CAP PO (15:34)
[2020-11-05 16:30] VITALS: BP 136/80; PULSE 80; RESP 16; TEMP 36.7; O2SAT 98
[2020-11-05] MEDS: Ibuprofen 600 MG TAB PO (17:46)
[2020-11-05 22:18] VITALS: BP 149/89; PULSE 81; RESP 16; TEMP 36.7; O2SAT 99
[2020-11-06] MEDS: Acetaminophen 325 MG TAB 650 MG PO ×3 (00:22→11:54)
[2020-11-06] MEDS: Ibuprofen 600 MG TAB PO ×3 (00:22→11:55)
[2020-11-06 04:15] VITALS: BP 152/89; PULSE 76; RESP 17; TEMP 36.6; O2SAT 99
[2020-11-06 08:40] VITALS: BP 156/89; PULSE 71; RESP 16; TEMP 36.3; O2SAT 98
[2020-11-06] MEDS: Docusate Sodium 100 MG CAP PO (08:40)
[2020-11-06] MEDS: Measles, Mumps, & Rubella Vaccine 0.5 ML VIAL SC (09:07)
[2020-11-06] MEDS: Varicella Virus Vaccine (Live) 0.5 ML SC (09:19)
[2020-11-06 12:29] VITALS: BP 157/91
== END 2020-11-06 13:50 | disposition home or self-care (01) | DRG 806 ==
LOC: BCD 11:39 → OBS 11:43
PROVIDERS: Admitting Provider Obstetrics & Gynecology Gynecology; PCP Nurse Practitioner; Visit Provider Obstetrics & Gynecology Gynecology
DX: O14.94 Unspecified pre-eclampsia, complicating childbirth (principal); O36.0930 Maternal care for other rhesus isoimmunization, third trimester, not applicable or unspecified; Z37.0 Single live birth; O43.193 Other malformation of placenta, third trimester; O99.62 Diseases of the digestive system complicating childbirth; O99.814 Abnormal glucose complicating childbirth; R73.02 Impaired glucose tolerance (oral); Z3A.37 37 weeks gestation of pregnancy; K21.9 Gastro-esophageal reflux disease without esophagitis
CPT/HCPCS: 36415; 80053; 85027; 87635; 59025; 82565; 84156; 84550; G0378; J3010

== ENCOUNTER 2022-08-20 01:20 | Outpatient (CLI) | payer BC, MEDICAID, SELFPAY ==
--- NOTE | 2022-08-20 08:30 | DI.US_ITS ---
Exam(s) US BREAST LT COMPLETE MAMMO DIAGNOSTIC BI EXAM: MG MAMMO DIAGNOSTIC BI CLINICAL HISTORY: L breast pain and fullness. 1 mo, LT BREAST PAIN, N64.4 MASTODYNIA. COMPARISON: No exams were available for comparison . Baseline examination. TECHNIQUE: Craniocaudal and mediolateral oblique Full Field Digital Mammography views of both breast s with Computer Aided Diagnosis followed by Tomosynthesis and left breast ultrasound. FINDINGS: Mammography/Tomosynthesis: Masses/Architectural Distortion: None seen. Microcalcifications: No suspicious pleomorphic-type are seen. Skin Thickening/Nipple Retraction: None. Left breast US: Echotexture: Normal appearance of the glandular tissue. Shadowing: No suspicious foci. Cyst: None. Solid lesions: None seen. Ductal dilation: None. IMPRESSION: 1. No evidence of malignancy is noted. 2. Unless there is more urgent need, follow-up screening mammography is recommended, as per [employer] guidelines. BI-RADS Category 1 - Negative Breast Density - Category C - Heterogeneously dense Breast density category C or D implies that the patient has dense breast tissue. Dense breast tissue is very common and is not abnormal but dense breast tissue can make it harder to find cancer on a ma mmogram. Also, dense breast tissue may increase their breast cancer risk. This information about the result of the mammogram report was provided to the patient to raise their awareness. Use this report when you speak with the patient about their risks for breast cancer, which includes their family hist ory. At that time, you may recommend for more screening tests (Ultrasound or MRI) as they might be us eful based on their risk. A negative radiographic report should not delay biopsy if a dominant or clinically suspicious mass is present. Up to ten percent of cancers are not identified on mammography. A negative report may reinforce clinical impression. Adenosis and dense breasts may obscure an underlying neoplasm. False positive reports average 6 to 10%. Patient will receive a letter notifying them of these results.
== END 2022-08-20 01:40 ==
PROVIDERS: PCP Nurse Practitioner Family; Visit Provider Obstetrics & Gynecology Gynecology
DX: N64.4 Mastodynia (principal); Z12.31 Encounter for screening mammogram for malignant neoplasm of breast
CPT/HCPCS: 76642; 77062; 77066; G0279

== ENCOUNTER 2024-04-08 16:39 | Emergency (ER) | payer BC, MEDICAID, SELFPAY ==
[2024-04-08 16:46] VITALS: BP 132/89; PULSE 88; RESP 20; TEMP 37.1; O2SAT 98
--- NOTE | 2024-04-08 17:00 | DI.CT_ITS ---
Exam(s) CT HEAD WO EXAM: CT HEAD WO CLINICAL HISTORY: Head strike. TECHNIQUE: Imaging Protocol: Axial computed tomography images with coronal and sagittal reformatted images were created and reviewed COMPARISON: CT CT HEAD CERVICAL SPINE WO from 07/25/2019 FINDINGS: There are no skull fractures. There are fluid levels in both maxillary sinuses as well as ethmoidal a ir cells bilaterally. Also small amount of fluid in the frontal sinuses and sphenoid sinuses. No fl uid in the mastoid air cells. There is no evidence of intracranial hemorrhage, mass effect, or shift of midline structures. There are no extra-axial fluid collections. Size of the ventricles asymmetric but this appears development al and unchanged from prior CT scan of July 2019.. There is no blood within the ventricular system n or within the basal cisterns. IMPRESSION: No acute intracranial findings on this noninfused CT scan of the brain. Acute sinusitis, as described above. Most prominent involvement is in the bilateral maxillary sinuse s. Report called by myself to ER physician 04/08/2024 at 6:48 p.m. RADIATION DOSE DELIVERED: 872.05mGy.cm Total DLP DATA REPOSITORY: All CT scans at this facility are submitted to the National Radiology Data Registry (NRDR) Dose Index Registry (DIR) with the [employer] (A[employer]). RADIATION OPTIMIZATION: All CT scans at this facility use at least one of these dose optimization te chniques: automated exposure control; mA and/or kV adjustment per patient size (includes targeted exa ms where dose is matched to clinical indication); or iterative reconstruction.
[2024-04-08] MEDS: Ondansetron O.D.T. 4 MG TABEF PO (17:12)
[2024-04-08 17:37] LABS: Abs Immature Grans 0.01 10^3/uL (0.0-0.06); Absolute Basophil Count 0.02 10^3/uL (0.0-0.2); Absolute Eosinophil Count 0.08 10^3/uL (0.0-0.7); Absolute Lymphocyte Count 1.14 10^3/uL (1.2-3.4); Absolute Monocyte Count 0.71 10^3/uL (0.1-0.8); Absolute Neutrophil Count 4.02 10^3/uL (1.2-6.7); Basophils % 0.3 %; Eosinophils % 1.3 %; HCT 39.8 % (36.0-46.0); HGB 13.3 g/dL (11.2-15.7); Immature Grans % 0.2 %; Lymphocytes % 19.1 %; MCH 30.9 pg (27.0-33.0); MCHC 33.4 % (32.0-36.0); MCV 93 fL (80-95); MPV 10.4 fL (8.0-11.0); Monocytes % 11.9 %; Neutrophils % 67.2 %; Platelet Count 172 10^3/uL (130-400); RDW 12.1 % (11.7-14.6); RDW-SD 41.3 fL; WBC 5.98 10^3/uL (4.4-10.8)
--- NOTE | 2024-04-08 17:39 | ED.GENADUL_ITS ---
Discharge Plan Disposition Patient Disposition: Home Discharge Details Clinical Impression: Influenza A, Acute hypokalemia, Hypocalcemia, Acute bacterial sinusitis Primary Care Provider: MARIA LUISA JONSE ED Provider: Denilson Almazan Home Meds and New Rx's Prescriptions: New amoxicillin-pot clavulanate 875-125 mg tablet 1 tab PO BID Qty: 14 0RF Continued acetaminophen [Tylenol] 325 mg capsule 650 mg PO ONCE PRN Discharge Instructions Instructions: Flu, Adult ED Additional Instructions: You are seen in the emergency department for your episode of passing out. Your blood work shows that your calcium was very mildly low and your potassium was also mildly low for which you are receiving oral repletion. These should normalize once she began eating normally. Please return to the emergency department develop chest pain or have any other concerns. You also have signs of sinusitis which is most likely from your influenza infection. If your symptoms do not improve over the next several weeks please return to the primary care provider or the emergency department as you may benefit from antibiotics. Discharge Data Discharge Date/Time-TO BE ENTERED AT DEPARTURE: 04/08/24 19:25 HPI General Date/Time Provider Initiated Documentation: 04/08/24 17:02 . HPI Narrative: MDM This is overall well-appearing initially normothermic and not tachycardic 38-year-old influenza positive female with syncopal episode at home but reassuring CT head and labs in the emergency department for which she will receive empiric trial of discharge with expectant outpatient management. Patient had reassuring troponin tests in the emergency department. Her labs showed some mild electrolyte abnormalities. She had fallen and hit her head but her CT scan showed no acute bleeds. She did have sinusitis which was likely secondary to viral etiology. I advised her that if her symptoms worsened that she should return to the emergency department. Her TSH was mildly elevated but her free T4 was within normal limits. She had no chest pain to suggest ACS. No recent carbon monoxide exposure to suggest carbon monoxide toxicity. No chiropractic manipulation to suggest cervical dissection. No history of hormone use to suggest increased risk for cerebral venous sinus thrombosis. Headache was not sudden onset suspicion was low for subarachnoid hemorrhage. Cranial nerves II through XII intact grossly so my suspicion is low for acute CVA so I did not feel that the patient would be a TNK candidate. GCS 15. Cranial nerves II through XII intact grossly. Uvula midline so my suspicion is low for peritonsillar abscess. Good range of motion in neck so doubt retropharyngeal abscess. No nuchal rigidity to suggest meningitis. No midline cervical spinal tenderness to suggest cervical spinal fracture. Patient did have some left- sided posterior cervical lymphadenopathy which could likely be reactive. She is handling her secretions make my suspicion low for epiglottitis. Nontoxic making my suspicion low for bacterial tracheitis. Based on her age I did not send a strep swab. 04/10 I called this patient at home to inquire as to how she was feeling. She was reporting worsening sinus pain down her right side of her neck now as well. Given her symptoms and her fever the night will treat for acute bacterial sinusitis with 7 days of amoxicillin clavulanic acid. I had intended to comple te an ECG the other night in the setting of the patient's syncope. I did not complete this so patient will return to the emergency department have an ECG. Patient return to the emergency department. She had a reassuring twelve-lead ECG with no signs of any heart blocks ischemia nor prolonged intervals. I advised her that if her symptoms worsen she should return to the ED. HPI This is a previously healthy 38-year-old female arrived emerged part via private vehicle in setting of fall several nights ago. Patient reports that 2 nights ago she felt lightheaded when she woke up and fell. She hit her head on the ground. She has been sneezing had a runny nose. She has had a headache she been taking acetaminophen. She denies chest pain shortness of breath and vomiting. Headache was not sudden in onset. She does endorse photophobia. She is nauseous but has not been vomiting. Exam General: Well-appearing in no acute distress speaking in complete sentences. Head: Normocephalic, atraumatic. Eye:[Pupils equal, round reactive to light.] Extraocular eye movements intact. No conjunctival injection. No scleral icterus. Ear, nose, mouth, throat: Grossly normal inspection. Normal voice, handling secretions normally. No posterior oropharynx erythema. Neck: Trachea midline. No midline cervical spinal tenderness. Patient does have mild left posterior cervical lymphadenopathy. Cardiovascular: Well-perfused distal extremities. Regular rate and rhythm. Clear lungs bilaterally. Respiratory: Nonlabored respiration. Gastrointestinal: Nondistended abdomen. Soft nontender. Musculoskeletal: No edema. Moving all 4 extremities spontaneously. Skin: Normal for age and race, grossly normal temperature and turgor. No acute rash. Neurologic: Alert and appropriate, no apparent acute deficits. GCS 15. Psychiatric: Mood and manner are appropriate. Grooming and personal hygiene are appropriate. Related Data Home Medications ?Medication ?Instructions ?Recorded ?Confirmed acetaminophen 325 mg capsule 650 mg PO ONCE PRN 04/18/20 04/08/24 (Tylenol) amoxicillin 875 mg-potassium 1 tab PO BID #14 tabs 04/10/24 clavulanate 125 mg tablet Previous Rx's ?Medication ?Instructions ?Recorded amoxicillin 875 mg-potassium 1 tab PO BID #14 tabs 04/10/24 clavulanate 125 mg tablet Allergies Allergy/AdvReac Type Severity Reaction Status Date / Time No Known Allergies Allergy Verified 04/08/24 16:51 General Stated Complaint: HeadInjury SOREN: 3 Course Vital Signs Vital signs: Vital Signs Temperature 37.1 C 04/08/24 16:46 Pulse 88 04/08/24 16:46 Respiratory Rate 20 04/08/24 16:46 Blood Pressure 132/89 04/08/24 16:46 Pulse Oximetry 98 04/08/24 16:46 Temperature 37.1 C 04/08/24 16:46 Pulse 88 04/08/24 16:46 Respiratory Rate 20 04/08/24 16:46 Blood Pressure 132/89 04/08/24 16:46 Pulse Oximetry 98 04/08/24 16:46 Pain Level 7 04/08/24 16:46 Lab/Test Results Lab/Test Results: Laboratory Tests Range/Units 04/08/24 17:20 WBC (4.4-10.8) 10^3/uL 5.98 RBC (3.93-5.22) 10^6/uL 4.30 Hgb (11.2-15.7) g/dL 13.3 Hct (36.0-46.0) % 39.8 MCV (80-95) fL 93 MCH (27.0-33.0) pg 30.9 MCHC (32.0-36.0) % 33.4 RDW (11.7-14.6) % 12.1 Plt Count (130-400) 10^3/uL 172 MPV (8.0-11.0) fL 10.4 Immature Gran % % 0.2 Neutrophils % % 67.2 Lymphocytes % % 19.1 Monocytes % % 11.9 Eosinophils % % 1.3 Basophils % % 0.3 Nucleated RBC % (0.0-0.3) % 0.0 Absolute Neutrophils (1.2-6.7) 10^3/uL 4.02 Absolute Lymphocytes (1.2-3.4) 10^3/uL 1.14 L Absolute Monocytes (0.1-0.8) 10^3/uL 0.71 Absolute Eosinophils (0.0-0.7) 10^3/uL 0.08 Absolute Basophils (0.0-0.2) 10^3/uL 0.02 Medical Decision Making Quality:SDOH Health Related Social Needs: No Data to Display PFSH All Active Problems (Updated 04/10/24 @ 12:50 by Denilson Almazan MD) Acute bacterial sinusitis (Acute) Hypocalcemia (Acute) Acute hypokalemia (Acute) Influenza A (Acute) IUD surveillance (Acute) Influenza vaccination requested (Acute) IUD (intrauterine device) in place (Acute) GERD (gastroesophageal reflux disease) (Chronic) Smoker (Acute) History of frequent headaches (Acute) severe at times requiring ED visits Right knee pain (Acute) Medical History (Updated 04/10/24 @ 12:50 by Denilson Almazan MD) Breast pain, left Normal spontaneous vaginal delivery Glucose intolerance of Marginal insertion of umbilical cord affecting management of mother in second trimester Tobacco use Ectopic Left leg pain (05/21/17) dysthesia over L lateral thigh developed in second trimester of current . Will refer to physical therapy for evaluation and treatment. Fibrocystic disease of breast (10/01/11) Surgical History Other ectopic with intrauterine [place] teeth extracted Family History Mother Diabetes Paternal Grandmother Breast cancer Social History Smoking/Tobacco Use Status: Current every day Tobacco Type: cigarettes Tobacco: How many years used: 15 Quit status: not considering quitting Smoking risk assessment performed?: Yes Alcohol Intake: current Alcohol Intake frequency: a few times a week Drug use: Never Substance use type: does not use Number of Children: 2 current occupation: [employer] Current gender identity: female What type of physical activity do you participate in: none Seatbelt use: always Do you feel safe at home: Yes Do you feel safe in your relationship?: Yes Female Reproductive History Menstrual control method: progestin IUCD (LOT=[id number] EXP=03/2020) History History 6 Para 3 Hx # Term Pregnancies 4 Multiple births Hx # Pregnancies Ectopic pregnancies 1 AB induced 2 Hx Number of Living Children 4 AB spontaneous 1 Past Pregnancies Del. Date GA/Weeks # Preg Succ Route Wgt Sex Labor Lgth Anesth esia Location [facility] 06/02/09 40 No vaginal 3458.642 g Male 16 regional Ian Fernandez 08/29/17 38 No vaginal 3061.748 g Male 24 hours [facility] [address] 11/03/20 37 No vaginal 3203.496 g Male Laura Te Delivery Date: 06/02/09 Last Updated by: Lauryn Gutiérrez CNM IOL at term due to maternal discomfort. Delivery Date: 08/29/17 Last Updated by: Lauryn Gutiérrez CNM Preeclampsia, proteinuria IOL at 38 weeks. Delivery Date: 11/03/20 Last Updated by: Chanel Lane M.D. IOL for HTN. [place]
[2024-04-08 17:42] LABS: HCG Qual (Serum) Negative
[2024-04-08 18:02] LABS: Anion Gap 6.6 mmol/L (3-11); BUN 9 mg/dL (7-18); CO2 30.4 mmol/L (21.0-32.0); CREATININE 0.8 mg/dL (0.55-1.02); Calcium 8.4 mg/dL (8.5-10.1); Chloride 101 mmol/L (98-107); Estimated GFR 97.87 (mL/min/1.73m2); Glucose 100 mg/dL (74-106); Magnesium 2.3 mg/dL (1.8-2.4); Potassium 3.3 mmol/L (3.5-5.1); Sodium 138 mmol/L (136-145); TSH (W/Ref FT4) 5.52 uIU/mL (0.36-3.74); Troponin I 4 ng/L (<or=51)
[2024-04-08 18:24] LABS: FREE T4 0.89 ng/dL (0.76-1.46)
[2024-04-08 18:55] LABS: Troponin I < 4 ng/L (<or=51)
[2024-04-08] MEDS: Potassium Bicarbonate/Cit AC 25 MEQ TABLET.EFF 50 MEQ PO (19:14)
[2024-04-08] MEDS: Calcium Carbonate *TUMS* 500 MG CHEW PO (19:14)
[2024-04-08] MEDS: Ibuprofen 400 MG TAB PO (19:15)
[2024-04-08] MEDS: Acetaminophen 500 MG TAB PO (19:15)
[2024-04-08 19:25] VITALS: BP 101/70; PULSE 88; RESP 18; TEMP 38.5; O2SAT 97
== END 2024-04-08 19:25 | disposition home or self-care (01) ==
LOC: ER 18:09
PROVIDERS: Emergency Provider Emergency Medicine; PCP Nurse Practitioner Family
DX: J10.1 Influenza due to other identified influenza virus with other respiratory manifestations (principal); E87.6 Hypokalemia; E83.51 Hypocalcemia; F17.210 Nicotine dependence, cigarettes, uncomplicated
CPT/HCPCS: 36415; 80048; 87426; 99284; 70450; 83735; 84439; 84443; 84484; 84703; 85025; 99283

== ENCOUNTER 2024-04-10 14:16 | Emergency (ER) | payer BC, MEDICAID, SELFPAY ==
--- NOTE | 2024-04-10 14:15 | RT.EKG_ITS ---
APPROVED REPORT Exam: Resting ECG Reason for Exam: recheck Patient Location: E HR:66 bpm ECG Measurements Heart Rate 66 AXIS AL 181 P 74 QRSd 69 QRS 66 QT 417 T 65 QTc 437 Conclusion Sinus rhythm...normal P axis, V-rate 60- 99 No STEMI
--- NOTE | 2024-04-13 07:17 | NUR.NOTE ---
Access chart to reconcile EKG orders with EKG's in [facility]. Duplicate order cancelled. Nursing Note:
== END 2024-04-10 15:54 | disposition left against medical advice (07) ==
LOC: ER 14:34
PROVIDERS: Emergency Provider Emergency Medicine; PCP Nurse Practitioner Family
DX: Z01.89 Encounter for other specified special examinations (principal)
CPT/HCPCS: 93005; 93010